=== PATIENT | male | born 1945 | race Caucasian/White ===

== ENCOUNTER → 2022-03-10 | Outpatient (CLI) | payer MEDICARE, OTHER, SELFPAY ==
[2022-03-12 15:08] LABS: Immunoglobulin A 191 mg/dL (61-437); Immunoglobulin G 2081 mg/dL (603-1613)
[2022-03-12 20:30] LABS: Immunoglobulin M 133 mg/dL (15-143)
== END | disposition home or self-care (01) ==
LOC: LABSPEC 13:38
PROVIDERS: Referring Provider Internal Medicine Nephrology; Visit Provider Internal Medicine Nephrology
DX: D50.9 Iron deficiency anemia, unspecified (principal); D63.1 Anemia in chronic kidney disease
CPT/HCPCS: 82784; 86334

== ENCOUNTER 2022-04-08 10:28 | Outpatient (CLI) | payer MEDICARE, OTHER, SELFPAY ==
--- NOTE | 2022-04-08 10:31 | RAD_ITS ---
STUDY: XR Chest 2 Views 04/08/2022 10:39 AM REASON FOR EXAM: Male, 77 years old. CHEST PAIN ?CHF; chronic cough paroxysms COMPARISON: Prior comparison studies are not available for review at this time. TECHNIQUE: XR Chest 2 Views FINDINGS: There is no demonstrated pleural abnormality. There are multiple median sternotomy wires. Left sided pneumonia. Normal heart size. Normal mediastinum. Normal ovidio. Prominent appearing increased interstitial lung markings. Normal visualized pulmonary arteries. There is atherosclerotic calcification of the aortic arch with tortuosity. There are diffuse degenerative changes of the visualized thoracic spine. There is degenerative osteoarthritis of the bilateral shoulders. There is no demonstrated abnormality of the visualized soft tissue structures of the upper abdomen. RAD/Chest PA and Lateral IMPRESSION: Left sided pneumonia. Electronically Signed: Nahid Saucedo MD at 19:12 EST ,
[2022-04-08 11:08] LABS: Hematocrit 25.4 % (40-54); Hemoglobin 7.4 g/dL (13.0-16.5); Mean Corp Hgb Conc 29.1 g/dL (32-36); Mean Corpuscular Hgb 30.2 pg (27.0-32.0); Mean Corpuscular Volume 103.7 fL (80-94); Mean Platelet Vol. 11.5 fl (6.2-12.0); POSITIVE COUNT YES; POSITIVE DIFFERENTIAL YES; POSITIVE MORPHOLOGY YES; Platelet Count 184 K/mm3 (150-450); RBC Distribution Width CV 17.2 % (11.6-14.6); RBC Distribution Width SD 63.9 fl (35.1-43.9); Red Blood Count 2.45 M/mm3 (4.6-6.2)
[2022-04-08 11:20] LABS: Differential Indicated MANUAL DIFF
[2022-04-08 11:52] LABS: BNP,B-Type NATRIURETIC PEPTIDE 21.6 pg/mL (0-100)
[2022-04-08 12:29] LABS: White Blood Count 18.1 K/mm3 (4.4-11.0)
[2022-04-08 12:35] LABS: Neutrophil-Band 10 % (0-5); Neutrophil-Segmented 65 % (47-70); Total Cells Counted 100 (MANUAL DIFF)
[2022-04-08 12:36] LABS: Blast 3 % (0-0); Lymphocyte 20 % (19-41); Metamyelocyte 2 % (0-1); Nucleated Red Bld Cells,Manual 2 % (0-5); Red Cell Morphology NORM C+C NORMAL (NORM C&C)
[2022-04-08 12:37] LABS: Absolute Lymphocyte Count 3.62 X10^3/uL (0.83-4.51); Absolute Neutrophil Count 13.6 X10^3/uL (2.0-7.7)
[2022-04-09 09:51] LABS: Pathologist Review Reviewed
== END 2022-04-08 23:59 | disposition home or self-care (01) ==
PROVIDERS: Visit Provider Internal Medicine
DX: R05.9 Cough, unspecified (principal); Z99.2 Dependence on renal dialysis; N18.6 End stage renal disease; D63.8 Anemia in other chronic diseases classified elsewhere; R06.02 Shortness of breath
CPT/HCPCS: 36415; 71046; 83880; 85025

== ENCOUNTER 2022-04-08 16:16 | Inpatient (IN) | payer MEDICARE, OTHER, SELFPAY ==
[2022-04-08] VITALS (8 sets, daily range): BP systolic 119–132; BP diastolic 53–68; PULSE 97–103; RESP 18–25; TEMP 36.2–37.3; O2SAT 94–99; BMI 23.6; BMI 21.9
--- NOTE | 2022-04-08 18:46 | ED.VIS.DYS ---
HPI History of Present Illness Chief Complaint: Shortness of Breath Narrative Narrative: Patient presents with cough congestion and some dyspnea for the past few days. He is found to be febrile at the pulmonology office, was found to have a pneumonia and sent to the emergency department. Cough is nonproductive. Patient does have peritoneal dialysis however his dialysate fluid is clear and he has no abdominal pain. Patient has no chest pain. There is no back pain. No pleuritic component. [facility] Medical History Abnormal magnetic resonance imaging of lumbar spine Anemia due to chronic illness Benign prostatic hyperplasia Bilateral hip pain BMI 24.0-24.9, adult CAD (coronary artery disease) Cardiovascular risk factor Carotid artery plaque Cataract Constipation Cough Depression screening Dialysis patient Dyspnea on exertion Erectile dysfunction ESRD (end stage renal disease) on dialysis Heart disease High blood pressure High cholesterol Hyperglycemia Hyperlipidemia LDL goal <100 Hypertension, benign Hypogonadism in male Hypothyroidism Insomnia Kidney disease Kidney failure Low HDL (under 40) Neuropathy Obstructive sleep apnea on CPAP Osteoarthritis of lumbar spine Overactive bladder Secondary hyperparathyroidism Thyroid disease Transient amnesia Vitamin D deficiency Home Medications aspirin 81 mg tablet,delayed release (Adult Low Dose Aspirin) 81 mg PO DAILY 02/19/15 [History Last Taken Unknown] cholecalciferol (vitamin D3) 25 mcg (1,000 unit) tablet (Vitamin D3) 2,000 unit PO DAILY 08/18/21 [History Last Taken Unknown] levothyroxine 125 mcg tablet (Euthyrox) 125 mcg PO 08/18/21 [History Last Taken Unknown] pravastatin 40 mg tablet 40 mg PO 08/18/21 [History Last Taken Unknown] acetaminophen 325 mg tablet (Tylenol) 650 mg PO ONCE PRN 04/07/22 [History Last Taken Unknown] calcitriol 0.5 mcg capsule 0.5 mcg PO 04/07/22 [History Last Taken Unknown] polyethylene glycol 3350 17 gram/dose oral powder (Miralax) 4 g PO DAILY PRN 04/07/22 [History Last Taken Unknown] vitamin B complex and vitamin C no.20-folic acid 1 mg capsule ([place] Caps) 1 cap PO DAILY 04/07/22 [History Last Taken Unknown] vitamin B complex and vitamin C no.20-folic acid 1 mg capsule (Triphrocaps) 1 cap PO DAILY 04/07/22 [History Last Taken Unknown] ipratropium bromide 21 mcg (0.03 %) nasal spray 2 spray intranasal TID post nasal drip #30 mL 04/08/22 [Rx Last Taken Unknown] omeprazole magnesium 20 mg tablet,delayed release (Prilosec OTC) 20 mg PO BID #60 tabs 04/08/22 [Rx Last Taken Unknown] Allergy/AdvReac Type Severity Reaction Status Date / Time No Known Allergies Allergy Verified 04/08/22 16:17 Family History Father Diabetes Heart disease Mother Hypertension Brother COVID-19 Brother Colon cancer Sister Lung cancer Other Kidney disease Parkinson disease Thyroid disorder Surgical History H/O heart bypass surgery History of prostate surgery Hx of cataract surgery S/P CABG (coronary artery bypass graft) Social History number of children: 3 Smoking Status: Never smoker alcohol intake: current alcohol intake frequency: 0-2 drinks per day substance use type: does not use diet: other well-balanced diet: daily or most days caffeine: Yes what type of physical activity do you participate in: none ROS ROS ED ROS Narrative Past medical history: Reviewed Medications: Reviewed Social history: Noncontributory Review of systems: All systems negative except as indicated General: Fever as in HPI Eyes: No visual changes ENT: No upper airway congestion, normal voice Neck: No neck pain Cardiovascular: No chest pain Respiratory: Dyspnea as in HPI Gastrointestinal: No abdominal pain, nausea vomiting or diarrhea Genitourinary: No dysuria Musculoskeletal: Denies myalgias no difficulty with ambulation Skin: No rash Neurological: No memory loss, confusion or any focal weakness Psych: No recent behavioral changes Hematologic: No easy bleeding or easy bruising EXAM Physical Exam Narrative Exam Narrative: Physical exam General: He appears relatively comfortable in the ED. Head: Normocephalic, Atraumatic Eyes: Conjunctiva not pale ENT: Moist mucous membranes, no signs of dehydration Neck: Supple, Nontender, No lymphadenopathy Cardiovascular: Regular rate, Regular rhythm Respiratory: Some coarse bilateral breath sounds. Abdomen: Soft, Nontender, Nondistended Back: Nontender, Normal Inspection. Negative for: CVA tenderness Extremities: Nontender, No edema Skin: Normal color, No rash Neurological: Alert, Normal Strength, Normal Sensation Psychological: Normal affect Const Vital Signs: 04/08/22 16:17 04/08/22 18:29 04/08/22 18:30 Temperature 97.2 F L Temperature Source Temporal Pulse Rate 103 H 101 H Respiratory Rate 18 25 H Respiratory Effort Respiratory Depth Respiratory Pattern Blood Pressure 126/53 H 125/58 H Blood Pressure Mean 77 80 Pulse Ox 99 97 97 Oxygen Delivery Method Room Air Room Air Room Air 04/08/22 18:30 04/08/22 18:31 04/08/22 19:00 Temperature 98 F 97.8 F Temperature Source Temporal Temporal Pulse Rate 101 H 102 H Respiratory Rate 20 H 20 H Respiratory Effort Normal Non-Labored Respiratory Depth Normal Respiratory Pattern Normal Blood Pressure 123/62 H 132/54 H Blood Pressure Mean 82 80 Pulse Ox 97 96 Oxygen Delivery Method Room Air Room Air Room Air MDM MDM Lab Data Labs: Laboratory Results - last 24 hr 04/08/22 04/08/22 04/08/22 18:36 18:40 18:40 WBC 12.6 H RBC 2.23 L Hgb 6.6 L Hct 23.3 L MCV 104.5 H MCH 29.6 MCHC 28.3 L RDW Std Deviation 64.7 H RDW Coeff of Marilou 17.2 H Plt Count 130 L MPV 12.0 Neut % (Auto) Not Reportable Absolute Neuts (auto) 8.4 H Absolute Lymphs (auto) 1.89 Total Counted 100 Neutrophils % (Manual) 66 Band Neutrophils % 1 Lymphocytes % (Manual) 15 L Monocytes % (Manual) 7 Metamyelocytes % 7 H Promyelocytes % 4 H Diff Path Review May foll PT 16.3 H INR 1.3 APTT 34.8 Sodium Potassium Chloride Carbon Dioxide Anion Gap BUN Creatinine Estim Creat Clear Calc Est GFR (MDRD) Af Amer Est GFR (MDRD) Non-Af BUN/Creatinine Ratio Glucose Lactic Acid Calcium Total Bilirubin AST ALT Alkaline Phosphatase Total Protein Albumin Globulin Albumin/Globulin Ratio Urine Color Yellow Urine Clarity Sl. Cloudy Urine pH 5.0 Ur Specific [place] 1.015 Urine Protein 30 H Urine Glucose (UA) Normal Urine Ketones Negative Urine Occult Blood 25 H Urine Nitrite Negative Urine Bilirubin Negative Urine Urobilinogen Normal Ur Leukocyte Esterase Negative Urine RBC 0-5 SEEN Urine WBC 0 SEEN Ur Squamous Epith Cells 0-5 SEEN Urine Bacteria RARE Urine Mucus 0 SEEN 04/08/22 04/08/22 18:40 18:40 WBC RBC Hgb Hct MCV MCH MCHC RDW Std Deviation RDW Coeff of Marilou Plt Count MPV Neut % (Auto) Absolute Neuts (auto) Absolute Lymphs (auto) Total Counted Neutrophils % (Manual) Band Neutrophils % Lymphocytes % (Manual) Monocytes % (Manual) Metamyelocytes % Promyelocytes % Diff Path Review PT INR APTT Sodium 137 Potassium 3.5 Chloride 104 Carbon Dioxide 20.0 L Anion Gap 13 BUN 97 H Creatinine 5.76 H Estim Creat Clear Calc 9.72 Est GFR (MDRD) Af Amer 12 L Est GFR (MDRD) Non-Af 10 L BUN/Creatinine Ratio 16.8 Glucose 140 H Lactic Acid 1.0 Calcium 9.2 Total Bilirubin 0.30 AST 17 ALT 22 Alkaline Phosphatase 33 L Total Protein 7.7 Albumin 2.8 L Globulin 4.9 H Albumin/Globulin Ratio 0.6 L Urine Color Urine Clarity Urine pH Ur Specific [place] Urine Protein Urine Glucose (UA) Urine Ketones Urine Occult Blood Urine Nitrite Urine Bilirubin Urine Urobilinogen Ur Leukocyte Esterase Urine RBC Urine WBC Ur Squamous Epith Cells Urine Bacteria Urine Mucus Radiography Diagnostic Testing: Clinical Impression(s) from Imaging Studies Chest X-Ray 04/08/22 18:47 IMPRESSION: Left sided pneumonia. Electronically Signed: Nahid Saucedo MD at 19:12 EST Reading Location ID and State: [facility] / [place] , Service support , X-ray interpreted by me shows left-sided pneumonia. EKG Initial EKG: Comments: 6 sinus rhythm with a rate of 99. Normal MA interval. QTc slightly elevated 492. No acute ischemic changes. Interpreted by emergency doctor Treatment and Re-Evaluation Narrative: A. Problems addressed Patient has peritoneal dialysis, his creatinine is elevated but his electrolytes are grossly unremarkable. He does not need acute dialysis. He is found to have pneumonia, I he is quite weak he is not desaturating. 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 This seems reasonable especially that he has chronic anemia chronic dialysis and has impaired healing function. B. Amount and/or complexity of the data 1. I discussed the patient with and daughter in the room Blood work interpreted by me 2. Independent interpretation of test Telemetry: Sinus rhythm with a rate in the 90s without ectopy 3. I discussed with pulmonology and medicine for admission C. Risk of complications and/or morbidity Differential diagnosis:, Patient does not have any signs or symptoms of ACS, pneumothorax was not found on the x-ray. I thought about PE however patient has obvious pneumonia which we will treat. Discharge Plan Triage Chief Complaint: Shortness of Breath ED Provider: Leighton Angulo Dx/Rx/DC Orders Clinical Impression: End stage chronic kidney disease, Anemia in chronic illness, Pneumonia Prescriptions: No Action levothyroxine [Euthyrox] 125 mcg tablet 125 mcg PO pravastatin 40 mg tablet 40 mg PO calcitriol 0.5 mcg capsule 0.5 mcg PO Rx Instructions: 3 DAYS A WEEK polyethylene glycol 3350 [Miralax] 17 gram/dose powder 4 g PO DAILY PRN [place] Caps 1 mg capsule 1 cap PO DAILY Rx Instructions: 3 DAYS A WEEK acetaminophen [Tylenol] 325 mg tablet 650 mg PO ONCE PRN Triphrocaps 1 mg capsule 1 cap PO DAILY ipratropium bromide 21 mcg (0.03 %) spray,non-aerosol 2 spray intranasal TID MDD 6 sprays Qty: 30 0RF Rx Instructions: administer into each nostril omeprazole magnesium [Prilosec OTC] 20 mg tablet,delayed release (DR/EC) 20 mg PO BID Qty: 60 2RF aspirin [Adult Low Dose Aspirin] 81 MG tablet,delayed release (DR/EC) 81 mg PO DAILY cholecalciferol (vitamin D3) [Vitamin D3] 25 mcg (1,000 unit) tablet 2,000 unit PO DAILY Primary Care Provider: Ulises Cm Referrals: Ulises Cm MD [Primary Care Provider] - Disposition Disposition: Acute Care Hospital [facility]
--- NOTE | 2022-04-08 18:47 | RAD_ITS ---
STUDY: XR Chest 1 View 04/08/2022 6:48 PM REASON FOR EXAM: Male, 77 years old. CHEST PAIN sob COMPARISON: Study done earlier today. TECHNIQUE: XR Chest 1 View FINDINGS: There is no demonstrated pleural abnormality. There are multiple median sternotomy wires. Left sided pneumonia. Normal heart size. Normal mediastinum. Normal ovidio. Prominent appearing increased interstitial lung markings. Normal visualized pulmonary arteries. There is atherosclerotic calcification of the aortic arch with tortuosity. There are diffuse degenerative changes of the visualized thoracic spine. There is degenerative osteoarthritis of the bilateral shoulders. There is no demonstrated abnormality of the visualized soft tissue structures of the upper abdomen. RAD/Chest 1 View (Portable) IMPRESSION: Left sided pneumonia. Electronically Signed: Nahid Saucedo MD at 19:12 EST ,
[2022-04-08 18:57] LABS: Mucous, Urine 0 SEEN /hpf (<or=2+); White Blood Cells 0 SEEN /hpf (0-5)
[2022-04-08 18:59] LABS: Color, Urine Yellow (Yellow); Glucose, Dipstick Normal (Normal); Ketone-Dipstick Negative (Negative); Leukocyte Esterase-Dipstick Negative /ul (Negative); Nitrite-Dipstick Negative (Negative); Occult Blood-Urine 25 /ul (Negative); Protein-Dipstick 30 mg/dl (Negative); Specific Gravity, Urine 1.015 (1.002-1.030); Urine Bilirubin Dipstick Negative (Negative); Urine Clarity Sl. Cloudy (Clear); Urine Urobilinogen Normal (Normal)
[2022-04-08 19:00] LABS: Hematocrit 23.3 % (40-54); Hemoglobin 6.6 g/dL (13.0-16.5); Mean Corp Hgb Conc 28.3 g/dL (32-36); Mean Corpuscular Hgb 29.6 pg (27.0-32.0); Mean Corpuscular Volume 104.5 fL (80-94); POSITIVE COUNT YES; POSITIVE MORPHOLOGY YES; Platelet Count 130 K/mm3 (150-450); RBC Distribution Width CV 17.2 % (11.6-14.6); RBC Distribution Width SD 64.7 fl (35.1-43.9); Red Blood Count 2.23 M/mm3 (4.6-6.2); White Blood Count 12.6 K/mm3 (4.4-11.0)
[2022-04-08 19:03] LABS: Differential Indicated MANUAL DIFF
[2022-04-08] MEDS: Ceftriaxone 1 GM/50 ML BAG IV (19:06)
[2022-04-08 19:09] LABS: International Normalized Ratio 1.3; Prothrombin Time (Protime)PT. 16.3 SECONDS (11.7-14.9)
[2022-04-08 19:10] LABS: Partial Thromboplast Time 34.8 Seconds (24.1-36.2)
[2022-04-08 19:14] LABS: Bacteria RARE /hpf (None Seen); Red Blood Cells-Urine 0-5 SEEN /hpf (0-5); Squamous Epithelial Cells - UA 0-5 SEEN /hpf (0-5)
[2022-04-08 19:17] LABS: ALB/GLOB Ratio 0.6 RATIO (0.9-2.4); AST(SGOT) 17 U/L (15-37); Alanine Aminotransfer ALT/SGPT 22 U/L (16-61); Albumin, Serum 2.8 g/dL (3.2-5.0); Alkaline Phosphatase 33 U/L (45-117); Anion Gap 13 (5-15); BUN 97 mg/dL (7-18); BUN/Creat Ratio 16.8 RATIO (10-20); Calcium,Total 9.2 mg/dL (8.5-10.1); Chloride 104 mmol/L (98-107); Creatinine, Serum 5.76 mg/dL (0.70-1.30); EST Glomerular Filtration Rate 10 mL/min (>60); Est Glom Filt Rate - Afr Amer 12 mL/min (>60); Estimated Creatinine Clearance 9.72 ml/min; Globulin 4.9 g/dL (2.2-4.2); Glucose 140 mg/dL (74-106); Potassium 3.5 mmol/L (3.5-5.1); Protein, Total 7.7 g/dL (6.4-8.2); Sodium Level 137 mmol/L (136-145)
[2022-04-08 19:41] LABS: Lymphocyte 15 % (19-41); Metamyelocyte 7 % (0-1); Monocyte 7 % (0-10); Neutrophil-Band 1 % (0-5); Neutrophil-Segmented 66 % (47-70); Promyelocyte 4 % (0-0); Total Cells Counted 100 (MANUAL DIFF)
[2022-04-08 19:47] LABS: Absolute Lymphocyte Count 1.89 X10^3/uL (0.83-4.51); Absolute Neutrophil Count 8.4 X10^3/uL (2.0-7.7)
--- NOTE | 2022-04-08 21:24 | HP.PCM.HOS_ITS ---
HPI - General General Date of Admission: 04/08/22 Date of Service: 04/08/22 Chief Complaint: SOB HPI Narrative JONATHAN FISCHER, is a 77-year-old male with history of end-stage renal disease sleep apnea, anemia of chronic disease who presented to [facility] 04/08 with increasing shortness of breath over several days. He was se en in the outpatient pulmonary office today and was noted to be febrile and found to have pneumonia and sent to the emergency department, the time he also had leukocytosis with a. Chronically on peritoneal dialysis but no overt electrolyte abnormalities in the ED. He was not hypoxic in the ED however given his multiple medical comorbidities inpatient versus outpatient treatment was discussed in the ED and he opted for inpatient treatment. In ED patient reported he has been coughing for months and short of breath for several weeks over the past 3 days he has had increased shortness of breath and cough with intermittent small production of sputum, denies any fevers, reports he has multiple medical problems that have been slowly adding up including hemoglobin in the 6-7 range for which she had a transfusion on 03/31 but has trended back down though no bleeding noted. He is recently established with director it project and is awaiting his bone marrow biopsy results. [facility] Medical History Abnormal magnetic resonance imaging of lumbar spine Anemia due to chronic illness Benign prostatic hyperplasia Bilateral hip pain BMI 24.0-24.9, adult CAD (coronary artery disease) Cardiovascular risk factor Carotid artery plaque Cataract Constipation Cough Depression screening Dialysis patient Dyspnea on exertion Erectile dysfunction ESRD (end stage renal disease) on dialysis Heart disease High blood pressure High cholesterol Hyperglycemia Hyperlipidemia LDL goal <100 Hypertension, benign Hypogonadism in male Hypothyroidism Insomnia Kidney disease Kidney failure Low HDL (under 40) Neuropathy Obstructive sleep apnea on CPAP Osteoarthritis of lumbar spine Overactive bladder Secondary hyperparathyroidism Thyroid disease Transient amnesia Vitamin D deficiency Home Medications aspirin 81 mg tablet,delayed release (Adult Low Dose Aspirin) 81 mg PO DAILY 02/19/15 [History Last Taken Unknown] cholecalciferol (vitamin D3) 25 mcg (1,000 unit) tablet (Vitamin D3) 2,000 unit PO DAILY 08/18/21 [History Last Taken Unknown] levothyroxine 125 mcg tablet (Euthyrox) 125 mcg PO DAILY 08/18/21 [History Last Taken Unknown] pravastatin 40 mg tablet 40 mg PO DAILY 08/18/21 [History Last Taken Unknown] calcitriol 0.5 mcg capsule 0.5 mcg PO 04/07/22 [History Last Taken Unknown] vitamin B complex and vitamin C no.20-folic acid 1 mg capsule ([place] Caps) 1 cap PO DAILY 04/07/22 [History Last Taken Unknown] ipratropium bromide 21 mcg (0.03 %) nasal spray 2 spray intranasal TID post nasal drip #30 mL 04/08/22 [Rx Last Taken Unknown] omeprazole magnesium 20 mg tablet,delayed release (Prilosec OTC) 20 mg PO BID #60 tabs 04/08/22 [Rx Last Taken Unknown] Allergy/AdvReac Type Severity Reaction Status Date / Time No Known Allergies Allergy Verified 04/08/22 16:17 Family History Father Diabetes Heart disease Mother Hypertension Brother COVID-19 Brother Colon cancer Sister Lung cancer Other Kidney disease Parkinson disease Thyroid disorder Surgical History H/O heart bypass surgery History of prostate surgery Hx of cataract surgery S/P CABG (coronary artery bypass graft) Social History number of children: 3 Smoking Status: Never smoker alcohol intake: current alcohol intake frequency: 0-2 drinks per day substance use type: does not use diet: other well-balanced diet: daily or most days caffeine: Yes what type of physical activity do you participate in: none ROS ROS Narrative General: Denies fever or chills, has had some gradual weight loss, some general malaise HENT: Denies headache, denies stuffy nose, denies sore throat EYES: Denies changes in vision Resp: Has had cough over several months as well as shortness of breath over 3 weeks that is worsened over the past several days Cardiac: Denies chest pain GI: Denies abdominal pain, denies changes in bowel, denies nausea, denies vomiting : Denies changes in urination Extremity: Denies swelling MSK: Denies weakness Neuro: Denies any numbness, denies tingling Heme: Denies any bleeding or bruising Skin: Denies rashes Psychiatric: No complaints voiced this Vital Signs Vital Signs Vital Signs: 04/08/22 16:17 04/08/22 18:29 04/08/22 18:30 Temperature 97.2 F L Temperature Source Temporal Pulse Rate 103 H 101 H Respiratory Rate 18 25 H Respiratory Effort Respiratory Depth Respiratory Pattern Blood Pressure 126/53 H 125/58 H Blood Pressure Mean 77 80 Pulse Ox 99 97 97 Oxygen Delivery Method Room Air Room Air Room Air 04/08/22 18:30 04/08/22 18:31 04/08/22 19:00 Temperature 98 F 97.8 F Temperature Source Temporal Temporal Pulse Rate 101 H 102 H Respiratory Rate 20 H 20 H Respiratory Effort Normal Non-Labored Respiratory Depth Normal Respiratory Pattern Normal Blood Pressure 123/62 H 132/54 H Blood Pressure Mean 82 80 Pulse Ox 97 96 Oxygen Delivery Method Room Air Room Air Room Air 04/08/22 20:33 Temperature 98.7 F Temperature Source Temporal Pulse Rate 100 Respiratory Rate 19 H Respiratory Effort Respiratory Depth Respiratory Pattern Blood Pressure 123/58 H Blood Pressure Mean 79 Pulse Ox 96 Oxygen Delivery Method Room Air Weight Weight: 68.3 kg Body Mass Index (BMI) 23.6 Physical Exam Narrative General: Alert, oriented, no apparent distress HEENT: Atraumatic, normocephalic Eyes: Anicteric, normal conjunctiva, extraocular movements grossly intact Neck: Supple Respiratory: Normal respiratory effort, some crackles on the left lower side Cardiovascular: Regular rate and rhythm GI: Soft, nontender, nondistended Extremities: No edema Musculoskeletal: Moving all extremities Neuro: No overt focal neurological deficits Skin: No rashes appreciated Psych: Cooperative Results Lab / Micro Data Result Diagrams: 04/08/22 18:40 04/08/22 18:40 Labs: Laboratory Results - last 24 hr 04/08/22 18:36: Urine Color Yellow, Urine Clarity Sl. Cloudy, Urine pH 5.0, Ur Specific [place] 1.015, Urine Protein 30 H, Urine Glucose (UA) Normal, Urine Ketones Negative, Urine Occult Blood 25 H, Urine Nitrite Negative, Urine Bilirubin Negative, Urine Urobilinogen Normal, Ur Leukocyte Esterase Negative, Urine RBC 0-5 SEEN, Urine WBC 0 SEEN, Ur Squamous Epith Cells 0-5 SEEN, Urine Bacteria RARE, Urine Mucus 0 SEEN 04/08/22 18:40: WBC 12.6 H, RBC 2.23 L, Hgb 6.6 L, Hct 23.3 L, MCV 104.5 H, MCH 29.6, MCHC 28.3 L, RDW Std Deviation 64.7 H, RDW Coeff of Marilou 17.2 H, Plt Count 130 L, MPV 12.0, Neut % (Auto) Not Reportable, Absolute Neuts (auto) 8.4 H, Absolute Lymphs (auto) 1.89, Total Counted 100, Neutrophils % (Manual) 66, Band Neutrophils % 1, Lymphocytes % (Manual) 15 L, Monocytes % (Manual) 7, Metamyelocytes % 7 H, Promyelocytes % 4 H, Diff Path Review June04/08/22 18:40: PT 16.3 H, INR 1.3, APTT 34.8 04/08/22 18:40: Sodium 137, Potassium 3.5, Chloride 104, Carbon Dioxide 20.0 L, Anion Gap 13, BUN 97 H, Creatinine 5.76 H, Estim Creat Clear Calc 9.72, Est GFR (MDRD) Af Amer 12 L, Est GFR (MDRD) Non-Af 10 L, BUN/Creatinine Ratio 16.8, Glucose 140 H, Calcium 9.2, Total Bilirubin 0.30, AST 17, ALT 22, Alkaline Phosphatase 33 L, Total Protein 7.7, Albumin 2.8 L, Globulin 4.9 H, Albumin/Globulin Ratio 0.6 L 04/08/22 18:40: Lactic Acid 1.0 04/08/22 20:47: Crossmatch See Detail Micro: Microbiology 04/08/22 18:50 Nasal Secretion SARS-CoV-2 & FLU Antigen (Rapid) - Final Radiology Impression Chest X-Ray 04/08/22 18:47 IMPRESSION: Left sided pneumonia. Electronically Signed: Nahid Saucedo MD at 19:12 EST Reading Location ID and State: [facility] / [place] , Service support , Assessment & Plan Assessment/Plan (1) End stage chronic kidney disease: (2) Anemia in chronic illness: (3) Pneumonia: (4) Obstructive sleep apnea on CPAP: PLAN: Plan #Community-acquired pneumonia -Chest x-ray consistent with left-sided pneumonia -COVID and flu negative -Blood cultures were sent in the ED -Sputum culture, respiratory panel -Rocephin and azithromycin -Incentive spirometry -Urine antigens #Anemia of chronic disease -Hemoglobin earlier today 7.4, reportedly was received fluids and presently is 6.6 -No signs or symptoms of bleeding, was typed and crossed in ED and packed red blood cells ordered however spoke with the lab and his blood has to be sent to the [place] for more specific testing due to multiple antibodies, given no active bleeding will monitor CBC and await crossmatch -Per patient he had to have a transfusion on March 31 for low hemoglobin as well, recently established with a director it project -Given this is a chronic problem and is being worked up as an outpatient including bone marrow biopsy that is pending will not repeat work-up unless further drop or evidence of bleeding -Given his coronary artery disease and anemia being chronic with no noted bleeding we will continue his home aspirin with low threshold to discontinue #Coronary artery disease status post bypass x2 in 2019 -Continue aspirin, statin #Obstructive sleep apnea -Uses CPAP at home, has brought it with him, will place order #End-stage renal disease on peritoneal dialysis -Does home peritoneal dialysis 3 times a week -Monitor electrolytes -Nephrology -Daily weights, I's and O's #Hypothyroidism -Synthroid #DVT ppx: SCDs given hemoglobin Glo Christopher MD Time spent in the patient's overall evaluation,decision-making process, review of diagnostic data, adjustment of management, discussion with other providers, nursing nursing and ancillary staff involved in patient's care documentation, 60 minutes Charges/Coding Visit Charges Inpatient E&M: 04319 Init Hosp L2
[2022-04-08] MEDS: guaiFENesin 1,200 MG Tablet 1200 MG PO (23:49)
[2022-04-08] MEDS: Pravastatin 40 MG Tablet PO (23:49)
[2022-04-08] MEDS: Pantoprazole Sodium 20 MG Tablet PO (23:49)
[2022-04-09] VITALS (7 sets, daily range): BP systolic 113–131; BP diastolic 64–68; PULSE 89–106; RESP 18–20; TEMP 36.6–37.6; O2SAT 95–100
[2022-04-09 04:41] LABS: Hematocrit 22.4 % (40-54); Hemoglobin 6.4 g/dL (13.0-16.5); Mean Corp Hgb Conc 28.6 g/dL (32-36); Mean Corpuscular Hgb 29.6 pg (27.0-32.0); Mean Corpuscular Volume 103.7 fL (80-94); Mean Platelet Vol. 11.3 fl (6.2-12.0); POSITIVE COUNT YES; POSITIVE MORPHOLOGY YES; Platelet Count 148 K/mm3 (150-450); RBC Distribution Width CV 17.1 % (11.6-14.6); RBC Distribution Width SD 62.8 fl (35.1-43.9); Red Blood Count 2.16 M/mm3 (4.6-6.2); White Blood Count 12.5 K/mm3 (4.4-11.0)
[2022-04-09 04:42] LABS: Differential Indicated MANUAL DIFF
[2022-04-09 05:09] LABS: ALB/GLOB Ratio 0.6 RATIO (0.9-2.4); AST(SGOT) 21 U/L (15-37); Alanine Aminotransfer ALT/SGPT 21 U/L (16-61); Albumin, Serum 2.6 g/dL (3.2-5.0); Alkaline Phosphatase 32 U/L (45-117); Anion Gap 13 (5-15); BUN 95 mg/dL (7-18); BUN/Creat Ratio 16.7 RATIO (10-20); Calcium,Total 9.1 mg/dL (8.5-10.1); Chloride 106 mmol/L (98-107); EST Glomerular Filtration Rate 10 mL/min (>60); Est Glom Filt Rate - Afr Amer 12 mL/min (>60); Estimated Creatinine Clearance 9.84 ml/min; Globulin 4.6 g/dL (2.2-4.2); Glucose 107 mg/dL (74-106); Potassium 3.7 mmol/L (3.5-5.1); Protein, Total 7.2 g/dL (6.4-8.2); Sodium Level 138 mmol/L (136-145); Total Cells Counted 100 (MANUAL DIFF)
[2022-04-09 05:10] LABS: Blast 1 % (0-0); Lymphocyte 14 % (19-41); Metamyelocyte 4 % (0-1); Monocyte 4 % (0-10); Myelocyte 9 % (0-0); Neutrophil-Band 1 % (0-5); Neutrophil-Segmented 66 % (47-70); Promyelocyte 1 % (0-0)
[2022-04-09 05:11] LABS: Anisocytosis 1+; Hypochromasia 1+; Macrocytosis RARE; Microcytosis RARE; Platelet Estimate ADEQUATE (ADEQ); Stomatocyte RARE
[2022-04-09 05:12] LABS: Absolute Lymphocyte Count 1.74 X10^3/uL (0.83-4.51); Absolute Neutrophil Count 8.3 X10^3/uL (2.0-7.7); Lymphocyte # 1.74 X10^3/ul (0.83-4.51); Neutrophil # 8.34 X10^3/uL (2.7-7.7)
[2022-04-09] MEDS: Levothyroxine 125 MCG Tablet PO (05:27)
[2022-04-09] MEDS: Ipratropium Bromide 0.06% NASAL SPRAY 1 SPRAY NASAL ×3 (05:27→21:11)
--- NOTE | 2022-04-09 08:04 | PCM.PN.HOSP ---
Reason for Visit Reason for Visit: Follow-up for severe anemia and pneumonia along with multiple comorbidities including ESKD on peritoneal dialysis and coronary artery disease status post CABG Diagnoses Anemia in other chronic diseases classified elsewhere (04/08/22) Obstructive sleep apnea (adult) (pediatric) (04/08/22) Pneumonia, unspecified organism (04/08/22) End stage renal disease (04/08/22) Dependence on other enabling machines and devices (04/08/22) Objective Data Objective Data Seen and examined. Patient is elderly gentleman. Shortness of breath is better. Patient was febrile and leukocytosis in ED. Cough with small sputum production. Physical exam General: Alert, Oriented x3, Cooperative HEENT: Atraumatic, PERRLA, EOMI, Normocephalic Oral: Oral mucosa dry. No Gingival or Mucosal Lesions/ Ulcerations Neck: Supple, No JVD, Negative Carotid Bruits Lungs: Air entry diminished in bilateral lung bases. No crepitation rhonchi or wheezing. Cardiovascular: Sinus rhythm, CABG scar. Regular rate, Regular Rhythm, Normal S1, Normal S2, systolic murmur over LLSB and cardiac apex. Abdomen: Bowel Sounds Present, Soft, Non Tender, Non-Distended : Peritoneal catheter present. No renal angle tenderness. No suprapubic tenderness. Extremities: No edema, Capillary Refill Less than 3 Seconds Skin: No rashes, No breakdown Musculoskeletal: No Tenderness to Palpation of Joints or Extremities. Moderate atrophy of muscles of extremities. Neurological: Cranial nerves II-XII grossly intact, DTR 2+/4 and Symmetrical, Neuro grossly intact Psych/Mental Status: Flat affect. Vital Signs: Vital Signs Temp Pulse Resp BP Pulse Ox O2 Del Method 97.9 F 98 18 113/68 100 Room Air 04/09/22 04:14 04/09/22 04:14 04/09/22 04:14 04/09/22 04:14 04/09/22 07:37 04/09/22 07:37 Oxygen Delivery Method Room Air Weight: 145 lb 15.136 oz Body Mass Index (BMI) 21.9 Intake & Output: Intake and Output for Last 24 Hours 04/07/22 04/08/22 04/09/22 23:59 23:59 23:59 Intake Total 305 / 305 900 / 900 Output Total 500 / 500 Balance 305 / 305 400 / 400 Lab / Micro Data Result Diagrams: 04/09/22 04:32 04/09/22 04:32 Labs: Laboratory Results - last 24 hr 04/08/22 18:36: Urine Color Yellow, Urine Clarity Sl. Cloudy, Urine pH 5.0, Ur Specific [place] 1.015, Urine Protein 30 H, Urine Glucose (UA) Normal, Urine Ketones Negative, Urine Occult Blood 25 H, Urine Nitrite Negative, Urine Bilirubin Negative, Urine Urobilinogen Normal, Ur Leukocyte Esterase Negative, Urine RBC 0-5 SEEN, Urine WBC 0 SEEN, Ur Squamous Epith Cells 0-5 SEEN, Urine Bacteria RARE, Urine Mucus 0 SEEN 04/08/22 18:40: WBC 12.6 H, RBC 2.23 L, Hgb 6.6 L, Hct 23.3 L, MCV 104.5 H, MCH 29.6, MCHC 28.3 L, RDW Std Deviation 64.7 H, RDW Coeff of Marilou 17.2 H, Plt Count 130 L, MPV 12.0, Neut % (Auto) Not Reportable, Absolute Neuts (auto) 8.4 H, Absolute Lymphs (auto) 1.89, Total Counted 100, Neutrophils % (Manual) 66, Band Neutrophils % 1, Lymphocytes % (Manual) 15 L, Monocytes % (Manual) 7, Metamyelocytes % 7 H, Promyelocytes % 4 H, Diff Path Review June04/08/22 18:40: PT 16.3 H, INR 1.3, APTT 34.8 04/08/22 18:40: Sodium 137, Potassium 3.5, Chloride 104, Carbon Dioxide 20.0 L, Anion Gap 13, BUN 97 H, Creatinine 5.76 H, Estim Creat Clear Calc 9.72, Est GFR (MDRD) Af Amer 12 L, Est GFR (MDRD) Non-Af 10 L, BUN/Creatinine Ratio 16.8, Glucose 140 H, Calcium 9.2, Total Bilirubin 0.30, AST 17, ALT 22, Alkaline Phosphatase 33 L, Total Protein 7.7, Albumin 2.8 L, Globulin 4.9 H, Albumin/Globulin Ratio 0.6 L 04/08/22 18:40: Lactic Acid 1.0 04/08/22 20:47: Blood Type A NEGATIVE, Antibody Screen POSITIVE H, Crossmatch See Detail 04/08/22 20:47: Direct Antiglob Test NEG w/POLYSPECIFIC 04/09/22 04:32: WBC 12.5 H, RBC 2.16 L, Hgb 6.4 L, Hct 22.4 L, MCV 103.7 H, MCH 29.6, MCHC 28.6 L, RDW Std Deviation 62.8 H, RDW Coeff of Marilou 17.1 H, Plt Count 148 L, MPV 11.3, Neut % (Auto) Not Reportable, Absolute Neuts (auto) 8.3 H, Absolute Lymphs (auto) 1.74, Total Counted 100, Neutrophils % (Manual) 66, Band Neutrophils % 1, Lymphocytes % (Manual) 14 L, Monocytes % (Manual) 4, Metamyelocytes % 4 H, Myelocytes % 9 H, Promyelocytes % 1 H, Blast Cells % 1 H*, Diff Path Review May , Platelet Estimate ADEQUATE, Hypochromasia 1+, Anisocytosis 1+, Microcytosis RARE, Macrocytosis RARE, Stomatocytes RARE 04/09/22 04:32: Sodium 138, Potassium 3.7, Chloride 106, Carbon Dioxide 19.0 L, Anion Gap 13, BUN 95 H, Creatinine 5.70 H, Estim Creat Clear Calc 9.84, Est GFR (MDRD) Af Amer 12 L, Est GFR (MDRD) Non-Af 10 L, BUN/Creatinine Ratio 16.7, Glucose 107 H, Calcium 9.1, Total Bilirubin 0.40, AST 21, ALT 21, Alkaline Phosphatase 32 L, Total Protein 7.2, Albumin 2.6 L, Globulin 4.6 H, Albumin/Globulin Ratio 0.6 L Micro: Microbiology 04/08/22 23:00 Mucosa - Nasopharyngeal Respiratory Panel (PCR) - Final 04/08/22 18:50 Nasal Secretion SARS-CoV-2 & FLU Antigen (Rapid) - Final Radiography Diagnostic Testing: Radiology Impression Chest X-Ray 04/08/22 18:47 IMPRESSION: Left sided pneumonia. Electronically Signed: Nahid Saucedo MD at 19:12 EST , Assessment & Plan Assessment/Plan (1) End stage chronic kidney disease: (2) Anemia in chronic illness: (3) Pneumonia: (4) Obstructive sleep apnea on CPAP: PLAN: Plan This 77-year-old gentleman was admitted for unproductive cough, congestion, dyspnea for past several days. Patient was found febrile in pulmonary office and pneumonia and was sent to ED for admission. No chest pain or back pain. #Community-acquired pneumonia: Chest x-ray image reviewed shows left-sided pneumonia. -COVID and flu negative. Respiratory panel negative. Sputum culture pending.Blood cultures x2 pending. On IV Rocephin and Zithromax. Incentive spirometry Pep and Mucinex DM. #Severe macrocytic anemia on anemia of chronic kidney disease: -Hemoglobin earlier today 7.4, reportedly was received fluids and presently is 6.6. 1 unit of PRBC ordered. No external bleeding or active bleeding. Patient had previous testing on March 31 and had recently established with investigation specialist in [place]. He does not remember the name. Patient had bone marrow biopsy 2 weeks. He has follow-up date for bone marrow biopsy report on next 04/14/2022. #Coronary artery disease status post bypass x2 in 2019 -Continue aspirin, statin #Obstructive sleep apnea -Uses CPAP at home, has brought it with him, will place order #End-stage renal disease on peritoneal dialysis -Does home peritoneal dialysis 3 times a week -Monitor electrolytes. Assistant Professor Of Biochemistry consulted. -Daily weights, I's and O's #Hypothyroidism -Synthroid #DVT ppx: SCDs pharmacological prophylaxis contraindicated. Charges/Coding Visit Charges Inpatient E&M: 21832 [facility] L3
[2022-04-09] MEDS: Cholecalciferol (VIT D3) 25 MCG TABLET (1,000 UNITS) 50 MCG PO (08:15)
[2022-04-09] MEDS: guaiFENesin 1,200 MG Tablet 1200 MG PO ×2 (08:16→21:09)
[2022-04-09] MEDS: Pantoprazole Sodium 20 MG Tablet PO ×2 (08:16→21:09)
[2022-04-09] MEDS: Calcitriol 0.25 MCG Capsule 0.5 MCG PO (08:19)
--- NOTE | 2022-04-09 09:25 | PCM.CONS.R ---
Assessment & Plan Assessment/Plan (1) End stage chronic kidney disease: (2) Pneumonia: (3) Anemia in chronic illness: PLAN: Plan This is a 77-year-old male with past medical history significant for ESRD who is on peritoneal dialysis support 3 nights weekly followed by Dr. Gerardo. Patient last had peritoneal dialysis on Tuesday evening. Per patient report, he undergoes peritoneal dialysis 3 nights weekly on a Tuesday, Tuesday, schedule using all 1.5% dianeal solution. We will plan for peritoneal dialysis this evening using 1.5% solution. We will obtain patient's outpatient chronic PD orders. Patient is on IV antibiotics for pneumonia. Reviewed chest x-ray which showed left-sided pneumonia. Blood cultures drawn and are pending. Patient has been ordered PRBC, hgb today 6.4. Blood pressures acceptable, not on any antihypertensives. We will order protein supplement. Thank you for allowing us participate in the care of Mr. Segura, further orders forthcoming as hospitalization evolves HPI Consult Data Date of Consult: 04/09/22 HPI Narrative HPI Narrative: JONATHAN SEGURA, is a 77 M who presented to the emergency room with complaints of shortness of breath and fatigue. Prior to coming to the emergency room patient was seen in outpatient pulmonary office and had been complaining of shortness of breath, febrile and found to have pneumonia therefore sent to the emergency room for evaluation. ER work-up included lab work which showed a low hemoglobin of 6.6. Patient was admitted for community acquired anemia, anemia of chronic disease. Patient recently established with clearance diver and underwent bone marrow biopsy a few weeks ago. Patient has a history of ESRD and is on peritoneal dialysis support. He is followed by Dr. Gerardo. He is seen at the [facility] kidney center in [place]. Per patient report he was started on peritoneal dialysis December 2020 and has been tolerating peritoneal dialysis 3 nights per week on a Tuesday, Tuesday and schedule. Patient reports his last peritoneal dialysis session was on Tuesday evening. Patient denies any recent abdominal pain, cramping and reports peritoneal fluid has been clear. [facility] Medical History Abnormal magnetic resonance imaging of lumbar spine Anemia due to chronic illness Benign prostatic hyperplasia Bilateral hip pain BMI 24.0-24.9, adult CAD (coronary artery disease) Cardiovascular risk factor Carotid artery plaque Cataract Constipation Cough Depression screening Dialysis patient Dyspnea on exertion Erectile dysfunction ESRD (end stage renal disease) on dialysis Heart disease High blood pressure High cholesterol Hyperglycemia Hyperlipidemia LDL goal <100 Hypertension, benign Hypogonadism in male Hypothyroidism Insomnia Kidney disease Kidney failure Low HDL (under 40) Neuropathy Obstructive sleep apnea on CPAP Osteoarthritis of lumbar spine Overactive bladder Secondary hyperparathyroidism Thyroid disease Transient amnesia Vitamin D deficiency Home Medications aspirin 81 mg tablet,delayed release (Adult Low Dose Aspirin) 81 mg PO DAILY 02/19/15 [History Last Taken Unknown] cholecalciferol (vitamin D3) 25 mcg (1,000 unit) tablet (Vitamin D3) 2,000 unit PO DAILY 08/18/21 [History Last Taken Unknown] levothyroxine 125 mcg tablet (Euthyrox) 125 mcg PO DAILY 08/18/21 [History Last Taken Unknown] pravastatin 40 mg tablet 40 mg PO DAILY 08/18/21 [History Last Taken Unknown] calcitriol 0.5 mcg capsule 0.5 mcg PO 04/07/22 [History Last Taken Unknown] vitamin B complex and vitamin C no.20-folic acid 1 mg capsule ([place] Caps) 1 cap PO DAILY 04/07/22 [History Last Taken Unknown] ipratropium bromide 21 mcg (0.03 %) nasal spray 2 spray intranasal TID post nasal drip #30 mL 04/08/22 [Rx Last Taken Unknown] omeprazole magnesium 20 mg tablet,delayed release (Prilosec OTC) 20 mg PO BID #60 tabs 04/08/22 [Rx Last Taken Unknown] Allergy/AdvReac Type Severity Reaction Status Date / Time No Known Allergies Allergy Verified 04/08/22 16:17 Family History Father Diabetes Heart disease Mother Hypertension Brother COVID-19 Brother Colon cancer Sister Lung cancer Other Kidney disease Parkinson disease Thyroid disorder Surgical History H/O heart bypass surgery History of prostate surgery Hx of cataract surgery S/P CABG (coronary artery bypass graft) Social History number of children: 3 Smoking Status: Never smoker alcohol intake: current alcohol intake frequency: 0-2 drinks per day substance use type: does not use diet: other well-balanced diet: daily or most days caffeine: Yes what type of physical activity do you participate in: none ROS ROS Narrative As per HPI and past medical history Physical Exam Narrative Alert and oriented x3, no apparent distress S1, S2, RRR Lung sounds clear anteriorly, diminished breath sounds left side posteriorly Abdomen soft, nontender. PD catheter intact, dressing clean dry and intact around PD catheter site No edema noted to bilateral lower legs feet or arms Lab / Micro Data Result Diagrams: 04/09/22 04:32 04/09/22 04:32 Labs: Laboratory Results - last 24 hr 04/08/22 18:36: Urine Color Yellow, Urine Clarity Sl. Cloudy, Urine pH 5.0, Ur Specific [place] 1.015, Urine Protein 30 H, Urine Glucose (UA) Normal, Urine Ketones Negative, Urine Occult Blood 25 H, Urine Nitrite Negative, Urine Bilirubin Negative, Urine Urobilinogen Normal, Ur Leukocyte Esterase Negative, Urine RBC 0-5 SEEN, Urine WBC 0 SEEN, Ur Squamous Epith Cells 0-5 SEEN, Urine Bacteria RARE, Urine Mucus 0 SEEN 04/08/22 18:40: WBC 12.6 H, RBC 2.23 L, Hgb 6.6 L, Hct 23.3 L, MCV 104.5 H, MCH 29.6, MCHC 28.3 L, RDW Std Deviation 64.7 H, RDW Coeff of Marilou 17.2 H, Plt Count 130 L, MPV 12.0, Neut % (Auto) Not Reportable, Absolute Neuts (auto) 8.4 H, Absolute Lymphs (auto) 1.89, Total Counted 100, Neutrophils % (Manual) 66, Band Neutrophils % 1, Lymphocytes % (Manual) 15 L, Monocytes % (Manual) 7, Metamyelocytes % 7 H, Promyelocytes % 4 H, Diff Path Review June04/08/22 18:40: PT 16.3 H, INR 1.3, APTT 34.8 04/08/22 18:40: Sodium 137, Potassium 3.5, Chloride 104, Carbon Dioxide 20.0 L, Anion Gap 13, BUN 97 H, Creatinine 5.76 H, Estim Creat Clear Calc 9.72, Est GFR (MDRD) Af Amer 12 L, Est GFR (MDRD) Non-Af 10 L, BUN/Creatinine Ratio 16.8, Glucose 140 H, Calcium 9.2, Total Bilirubin 0.30, AST 17, ALT 22, Alkaline Phosphatase 33 L, Total Protein 7.7, Albumin 2.8 L, Globulin 4.9 H, Albumin/Globulin Ratio 0.6 L 04/08/22 18:40: Lactic Acid 1.0 04/08/22 20:47: Blood Type A NEGATIVE, Antibody Screen POSITIVE H, Crossmatch See Detail 04/08/22 20:47: Direct Antiglob Test NEG w/POLYSPECIFIC 04/09/22 04:32: WBC 12.5 H, RBC 2.16 L, Hgb 6.4 L, Hct 22.4 L, MCV 103.7 H, MCH 29.6, MCHC 28.6 L, RDW Std Deviation 62.8 H, RDW Coeff of Marilou 17.1 H, Plt Count 148 L, MPV 11.3, Neut % (Auto) Not Reportable, Absolute Neuts (auto) 8.3 H, Absolute Lymphs (auto) 1.74, Total Counted 100, Neutrophils % (Manual) 66, Band Neutrophils % 1, Lymphocytes % (Manual) 14 L, Monocytes % (Manual) 4, Metamyelocytes % 4 H, Myelocytes % 9 H, Promyelocytes % 1 H, Blast Cells % 1 H*, Diff Path Review May foll, Platelet Estimate ADEQUATE, Hypochromasia 1+, Anisocytosis 1+, Microcytosis RARE, Macrocytosis RARE, Stomatocytes RARE 04/09/22 04:32: Sodium 138, Potassium 3.7, Chloride 106, Carbon Dioxide 19.0 L, Anion Gap 13, BUN 95 H, Creatinine 5.70 H, Estim Creat Clear Calc 9.84, Est GFR (MDRD) Af Amer 12 L, Est GFR (MDRD) Non-Af 10 L, BUN/Creatinine Ratio 16.7, Glucose 107 H, Calcium 9.1, Total Bilirubin 0.40, AST 21, ALT 21, Alkaline Phosphatase 32 L, Total Protein 7.2, Albumin 2.6 L, Globulin 4.6 H, Albumin/Globulin Ratio 0.6 L Micro: Microbiology 04/08/22 23:00 Mucosa - Nasopharyngeal Respiratory Panel (PCR) - Final 04/08/22 18:50 Nasal Secretion SARS-CoV-2 & FLU Antigen (Rapid) - Final Radiology Impression Chest X-Ray 04/08/22 18:47 IMPRESSION: Left sided pneumonia. Electronically Signed: Nahid Saucedo MD at 19:12 EST ,
[2022-04-09] MEDS: Nepro Liquid 120 ML LIQUID PO ×3 (11:55→16:53)
--- NOTE | 2022-04-09 12:35 | CASEMGMT ---
RN CM Face to Face with patient for initial transition planning/care coordination assessment. RN CM introduced self and role at [facility]. Patient lying in bed, alert and oriented. Patient willing to participate in assessment and is able to answer all questions appropriately. Care providers, pharmacy, and demographics verified. Patient wishes to discharge home, denies need for home health at this time. Patient states he has no further needs or concerns at this time. CM to follow for discharge planning needs that may arise. PCP: [facility] Specialists: Akin, bleach maker; Marisol, aircraft pilot; Kiran, Lining Cutter; Lisa, vascular [facility]acy[facility] Insurance: [employer] Prescription Benefit: yes Living Will/HPOA: yes, daughter Adrienne Daíz LNOK: , daughter Living Arrangements: Patient lives with and daughter in a 2 story home with bed and bath on first floor. Patient states he is independent at home. Transportation: self, DME/HHC: Patient states he has raised toilet, cpap, and pulse ox at home. Patient does PD at home. Patient has been to [facility] in the past and has had [facility] in the past. Disposition Plan: Patient to discharge home with family support and follow-up plans in place. Alyce CONNORS, RN, CM
[2022-04-09 12:42] LABS: Pathologist Review Reviewed
[2022-04-09 12:45] LABS: Pathologist Review Reviewed
[2022-04-09] MEDS: guaiFENesin/D-Methorphan TAB.SR.12H 1 TABLET PO ×2 (16:53→21:09)
--- NOTE | 2022-04-09 18:50 | DIALYSIS ---
Peritoneal dialysis treatment ready to start. Pt wants to allow heater bag to warm x1 hour prior to starting. Pt explained how he will connect himself. Pt very conscienscious of being clean with procedure. Pt's at bedside capable of helping.
[2022-04-09] MEDS: Pravastatin 40 MG Tablet PO (21:09)
[2022-04-09] MEDS: 0.9% Saline Lock 10 ML Syringe IV (21:09)
[2022-04-10 03:15] VITALS: BP 136/76; PULSE 92; RESP 18; TEMP 36.5; O2SAT 98
[2022-04-10] MEDS: Levothyroxine 125 MCG Tablet PO (05:46)
[2022-04-10] MEDS: Ipratropium Bromide 0.06% NASAL SPRAY 1 SPRAY NASAL ×3 (05:47→20:39)
[2022-04-10 06:11] LABS: Hematocrit 23.1 % (40-54); Hemoglobin 6.6 g/dL (13.0-16.5); Mean Corp Hgb Conc 28.6 g/dL (32-36); Mean Corpuscular Hgb 29.5 pg (27.0-32.0); Mean Corpuscular Volume 103.1 fL (80-94); Mean Platelet Vol. 11.8 fl (6.2-12.0); POSITIVE COUNT YES; POSITIVE MORPHOLOGY YES; Platelet Count 140 K/mm3 (150-450); RBC Distribution Width CV 17.2 % (11.6-14.6); Red Blood Count 2.24 M/mm3 (4.6-6.2); White Blood Count 15.9 K/mm3 (4.4-11.0)
[2022-04-10 06:12] LABS: Differential Indicated MANUAL DIFF
[2022-04-10 06:45] LABS: Blast 1 % (0-0); Lymphocyte 12 % (19-41); Metamyelocyte 5 % (0-1); Monocyte 3 % (0-10); Myelocyte 9 % (0-0); Neutrophil-Band 3 % (0-5); Neutrophil-Segmented 65 % (47-70); Platelet Estimate ADEQUATE (ADEQ); Promyelocyte 2 % (0-0); Total Cells Counted 100 (MANUAL DIFF)
[2022-04-10 06:46] LABS: Absolute Neutrophil Count 10.8 X10^3/uL (2.0-7.7); Anisocytosis 1+; Hypochromasia 2+; Macrocytosis 1+; Microcytosis RARE; Neutrophil # 10.82 X10^3/uL (2.7-7.7); Stomatocyte RARE
[2022-04-10 06:47] LABS: Absolute Lymphocyte Count 1.91 X10^3/uL (0.83-4.51); Lymphocyte # 1.91 X10^3/ul (0.83-4.51)
[2022-04-10 07:15] LABS: Anion Gap 13 (5-15); BUN 88 mg/dL (7-18); BUN/Creat Ratio 16.4 RATIO (10-20); Calcium,Total 9.6 mg/dL (8.5-10.1); Chloride 106 mmol/L (98-107); Creatinine, Serum 5.38 mg/dL (0.70-1.30); EST Glomerular Filtration Rate 11 mL/min (>60); Est Glom Filt Rate - Afr Amer 13 mL/min (>60); Glucose 146 mg/dL (74-106); Potassium 3.4 mmol/L (3.5-5.1); Sodium Level 137 mmol/L (136-145)
[2022-04-10 08:42] VITALS: O2SAT 95
[2022-04-10 09:05] VITALS: BP 121/74; PULSE 96; RESP 16; TEMP 36.8; O2SAT 97
--- NOTE | 2022-04-10 09:06 | NURSING ---
Per Dr Shane's instruction, I informed Elisa in blood bank that Dr Shane would like the [facility] to expand their search for blood products to find one suitable for safe transfusion.
--- NOTE | 2022-04-10 09:11 | NURSING ---
This RN returned a phonecall from Malcom, patient's daughter providing an update aboutthe challenge of finding a match for patient's antibodies. Malcom expressed understanding and thanked me for the update. Malcom says that patient had blood transfusion on March 24 and at [facility]. He follows with Dr Samantha Freed at [facility]. [place] office and [place] office
[2022-04-10] MEDS: Cholecalciferol (VIT D3) 25 MCG TABLET (1,000 UNITS) 50 MCG PO (09:19)
[2022-04-10] MEDS: Nepro Liquid 120 ML LIQUID PO ×3 (09:20→17:30)
[2022-04-10] MEDS: guaiFENesin 1,200 MG Tablet 1200 MG PO ×2 (09:20→20:39)
[2022-04-10] MEDS: Pantoprazole Sodium 20 MG Tablet PO ×2 (09:20→20:39)
[2022-04-10] MEDS: guaiFENesin/D-Methorphan TAB.SR.12H 1 TABLET PO ×2 (09:20→20:39)
[2022-04-10] MEDS: Aspirin E.C. 81 MG Tablet PO (09:20)
[2022-04-10 14:23] VITALS: BP 120/69; PULSE 94; RESP 16; TEMP 37.1; O2SAT 94
--- NOTE | 2022-04-10 15:30 | PN.HOSP_ITS ---
Reason for Visit Reason for Visit: Shortness of breath Subjective Subjective Mr. Segura is a 77-year-old male with a history of end-stage renal disease on peritoneal dialysis and anemia who presented to to the emergency department at [facility] on 04/08/2022 as directed by his outpatient show host (Dr. Weiss). He evidently was noted to be febrile in the office and chest x-ray with possible right lower lobe infiltrate and leukocytosis. He was not hypoxic on presentation and has not been hypoxic during his hospital course. He reported that he had been coughing for months and had shortness of breath for the last several weeks that worsened over the past 3 days prior to presentation. He has been producing small amount of sputum. He has had significant issues recently with anemia for which his last transfusion was on 03/31/2022 but his hemoglobin has trended back down and no acute bleeding has been noted. He recently established with a business strategist in [place] and is awaiting bone marrow biopsy results. Today the patient states that he just feels very tired. He has been on Levaquin for antibiotics. He has no specific complaints other than significant fatigue. We have unfortunately been unable to obtain any blood products for him as of yet as he is Rh negative and has multiple antigens. No blood has been found in the state so far and a nationwide search has been pursued. Objective Data Objective Data Vital Signs: Vital Signs Temp Pulse Resp BP Pulse Ox O2 Del Method 98.8 F 94 16 120/69 94 Room Air 04/10/22 14:23 04/10/22 14:23 04/10/22 14:23 04/10/22 14:23 04/10/22 14:23 04/10/22 14:23 Oxygen Delivery Method Room Air Weight: 67.3 kg Body Mass Index (BMI) 21.9 Intake & Output: Intake and Output for Last 24 Hours 04/08/22 04/09/22 04/10/22 23:59 23:59 23:59 Intake Total 305 / 305 2325 / 2325 Output Total 950 / 950 727 / 727 Balance 305 / 305 1375 / 1375 -727 / -727 Medical Nutrition Assessment Dietitian: Malnutrition Criteria Met Start: 04/09/22 15:05 Freq: Status: Active Protocol: Document 04/09/22 15:05 AG (Rec: 04/09/22 15:05 AG [id number]) Nutrition Malnutrition Evidence of Malnutrition Exists Yes Malnutrition (moderate): Chronic Evidenced By Suboptimal Energy Intake ( Moderate),Physical Changes ( Moderate) Clinical Problem Chronic Disease or Condition Related Malnutrition Etiology chronic, moderate malnutrition related to decreased appetite w/ increased energy needs d/t dialysis Signs/Symptoms as evidenced by estimated PO intake meeting <75% of estimated energy needs > 3 months; Obvious signs of moderate muscle wasting/fat loss evident in orbital, temporal, clavicle, and acromion areas Status Active Problem Recommendation Dietitian Recommendations/Changes continue cardiac diet given evidence of malnutrition; continue nepro carb steady ONS 4x/day for additional calories/protein if consumed Lab / Micro Data Result Diagrams: 04/10/22 05:00 04/10/22 05:00 Labs: Laboratory Results - last 24 hr 04/10/22 05:00: WBC 15.9 H, RBC 2.24 L, Hgb 6.6 L, Hct 23.1 L, MCV 103.1 H, MCH 29.5, MCHC 28.6 L, RDW Std Deviation 63.0 H, RDW Coeff of Marilou 17.2 H, Plt Count 140 L, MPV 11.8, Neut % (Auto) Not Reportable, Absolute Neuts (auto) 10.8 H, Absolute Lymphs (auto) 1.91, Total Counted 100, Neutrophils % (Manual) 65, Band Neutrophils % 3, Lymphocytes % (Manual) 12 L, Monocytes % (Manual) 3, Metamyelocytes % 5 H, Myelocytes % 9 H, Promyelocytes % 2 H, Blast Cells % 1 H*, Diff Path Review May foll, Platelet Estimate ADEQUATE, Hypochromasia 2+, Anisocytosis 1+, Microcytosis RARE, Macrocytosis 1+, Stomatocytes RARE 04/10/22 05:00: Sodium 137, Potassium 3.4 L, Chloride 106, Carbon Dioxide 18.0 L , Anion Gap 13, BUN 88 H, Creatinine 5.38 H, Estim Creat Clear Calc 10.60, Est GFR (MDRD) Af Amer 13 L, Est GFR (MDRD) Non-Af 11 L, BUN/Creatinine Ratio 16.4, Glucose 146 H, Calcium 9.6, Folate 37.70 Micro: Microbiology 04/10/22 06:30 Sputum, Expectorated/Coughed Gram Stain - Final 04/08/22 18:36 Urine, Clean Catch Urine Culture - Final Culture exhibits no growth. 04/08/22 18:30 Urine, Clean Catch Streptococcus pneumoniae Antigen (M - Final 04/08/22 18:30 Urine, Clean Catch Legionella Antigen - Final 04/08/22 23:00 Mucosa - Nasopharyngeal Respiratory Panel (PCR) - Final 04/08/22 18:50 Nasal Secretion SARS-CoV-2 & FLU Antigen (Rapid) - Final Physical Exam Const alert, oriented x3, no apparent distress and average body habitus Constitutional Narrative: Elderly, chronically ill-appearing male, no acute distress, nontoxic, family at bedside-daughter and HEENT head/scalp atraumatic and moist oral mucous membranes HEENT Narrative: Dentition is poor, Mallampati is 2, no thrush Head and Scalp: normocephalic Resp normal respiratory effort, no retractions, no use of accessory muscles and No clear to auscultation bilaterally Resp Narrative: Crackles noted in bilateral bases Auscultation: crackles; Negative for rhonchi or wheezes Cardio regular rate, regular rhythm, S1 normal heart sound, S2 normal heart sound, no murmurs, no rub, no gallops and no clicks GI normal to inspection, nondistended, normoactive bowel sounds, soft to palpation and non-tender Extremity no clubbing, cyanosis or edema Extremity Narrative: 2+ pedal pulses Neuro oriented x3, moves all extremities and no focal motor deficits Neuro Narrative: Significant generalized weakness Speech: speech normal Psych Psych Narrative: Appears fatigued but pleasant and appropriately interactive Assessment & Plan Assessment/Plan (1) Anemia: (2) Pneumonia: (3) Dyspnea on exertion: (4) Leukocytosis: (5) Thrombocytopenia: (6) Hypokalemia: (7) Hyperglycemia: PLAN: Plan Chronic anemia -Patient markedly symptomatic with shortness of breath history of CAD -Current hemoglobin is 6.6 -No obvious signs of bleeding -Recently underwent bone marrow biopsy at his business strategist office in [place] -Results are pending -Blood ordered however patient with Rh- blood and antibodies/antigens -Nationwide search for compatible blood ongoing -Repeat CBC in a.m. -CBC has overall been stable in the last 48 hours Pneumonia-left lower lobe--> possible -Patient with bandemia and leukocytosis on presentation -Chest x-ray showed possible left lower lobe infiltrate -Check CT of the chest -Continue azithromycin and ceftriaxone -Sputum culture done and so far only shows 2+ gram-positive cocci on Gram stain -Await final cultures -COVID and respiratory viral panel are negative -Blood cultures are pending -Patient has not been febrile since hospitalization Leukocytosis -Suspect related to the above -Did trend up slightly -Awaiting cultures -Continue ceftriaxone and azithromycin -Repeat CBC in a.m. Thrombocytopenia -Likely related to antibiotics as this was new after admission -Mild -Continue to monitor ESRD -Nephrology consulted -Continue peritoneal dialysis as ordered -Follows as an outpatient with Dr. Gerardo -Current peritoneal dialysis schedule is Tuesday, Tuesday, Hyperglycemia -This has been consistent -Check hemoglobin A1c -No documented previous diabetes Hypothyroidism -Continue home levothyroxine GERD -Continue home PPI Hyperlipidemia -continue on pravastatin History of hypogonadism -Outpatient follow-up DVT prophylaxis -Continue SCDs -Chemoprophylaxis held secondary to severe anemia CODE STATUS Full code Charges/Coding Visit Charges Inpatient E&M: 18257 Subs Hosp L2
--- NOTE | 2022-04-10 15:36 | CT_ITS ---
EXAM: CT CHEST WITHOUT INTRAVENOUS CONTRAST CLINICAL INDICATION: sob TECHNIQUE: Helically acquired images were obtained of the chest without intravenous contrast. This CT exam was performed using one or more of the following dose reduction techniques: automated exposure control, adjustment of the mA and/or kV according to patient size, and/or use of iterative reconstruction technique. This report was created using [employer] report generation technology. COMPARISON: None. FINDINGS: LUNGS AND PLEURAL SPACES: There is a slightly spiculated nodule in the right lung apex that measures 1.9 x 1.6 x 2.2 cm suspicious for malignancy. There is scarring seen within the lingula and within the lung bases. No pneumothorax. There is no consolidation or effusion. HEART: Unremarkable. Heart size is normal. No pericardial effusion. No significant coronary artery calcifications. MEDIASTINUM: Unremarkable. No mediastinal or hilar adenopathy. Esophagus is unremarkable. No hiatal hernia. THYROID: Unremarkable. No thyroid lesions. BONES/JOINTS: See above. VASCULATURE: Unremarkable. Thoracic aorta is non-dilated. CT/Chest without Contrast IMPRESSION: Spiculated lesion in the right lung apex suspicious for malignancy. Further evaluation with PET CT scan may be beneficial. There is minimal scarring in the lung bases. Electronically Signed: Jens Zuniga MD at 20:18 EST ,
[2022-04-10 20:35] VITALS: BP 128/66; PULSE 106; RESP 16; TEMP 37.3; O2SAT 95
[2022-04-10] MEDS: Pravastatin 40 MG Tablet PO (20:39)
[2022-04-10] MEDS: 0.9% Saline Lock 10 ML Syringe IV (20:40)
[2022-04-10 22:10] VITALS: BP 131/72; PULSE 102; RESP 16; TEMP 37.3; O2SAT 96
[2022-04-11 04:34] VITALS: BP 121/70; PULSE 96; RESP 16; TEMP 36.9; O2SAT 98
[2022-04-11] MEDS: Levothyroxine 125 MCG Tablet PO (04:36)
[2022-04-11] MEDS: Ipratropium Bromide 0.06% NASAL SPRAY 1 SPRAY NASAL (04:36)
[2022-04-11 07:13] LABS: Hemoglobin 6.3 g/dL (13.0-16.5); Mean Corp Hgb Conc 28.6 g/dL (32-36); Mean Corpuscular Volume 104.8 fL (80-94); Mean Platelet Vol. 11.2 fl (6.2-12.0); POSITIVE COUNT YES; POSITIVE MORPHOLOGY YES; Platelet Count 145 K/mm3 (150-450); RBC Distribution Width CV 17.3 % (11.6-14.6); RBC Distribution Width SD 65.1 fl (35.1-43.9); White Blood Count 15.7 K/mm3 (4.4-11.0)
[2022-04-11 07:19] LABS: Differential Indicated MANUAL DIFF
[2022-04-11 07:32] LABS: Anion Gap 11 (5-15); BUN 88 mg/dL (7-18); BUN/Creat Ratio 16.9 RATIO (10-20); Calcium,Total 9.2 mg/dL (8.5-10.1); Chloride 105 mmol/L (98-107); Creatinine, Serum 5.21 mg/dL (0.70-1.30); EST Glomerular Filtration Rate 11 mL/min (>60); Est Glom Filt Rate - Afr Amer 14 mL/min (>60); Estimated Creatinine Clearance 10.99 ml/min; Glucose 105 mg/dL (74-106); Potassium 3.4 mmol/L (3.5-5.1); Sodium Level 136 mmol/L (136-145)
[2022-04-11 08:08] LABS: Hemoglobin A1c < 3.8 % (3.8-5.6)
[2022-04-11 08:10] LABS: Anisocytosis 2+; Blast 2 % (0-0); Hypochromasia 1+; Lymphocyte 6 % (19-41); Metamyelocyte 10 % (0-1); Myelocyte 4 % (0-0); Neutrophil-Band 8 % (0-5); Neutrophil-Segmented 69 % (47-70); Nucleated Red Bld Cells,Manual 1 % (0-5); Promyelocyte 1 % (0-0); Total Cells Counted 100 (MANUAL DIFF)
[2022-04-11 08:11] LABS: Hypersegmented Neutrophils RARE; Polychromasia RARE
[2022-04-11 08:12] LABS: Stomatocyte RARE
[2022-04-11 08:14] LABS: Absolute Neutrophil Count 11.9 X10^3/uL (2.0-7.7)
[2022-04-11 10:17] VITALS: BP 118/63; PULSE 95; RESP 16; TEMP 37; O2SAT 94
[2022-04-11] MEDS: Cholecalciferol (VIT D3) 25 MCG TABLET (1,000 UNITS) 50 MCG PO (10:26)
[2022-04-11] MEDS: Pantoprazole Sodium 20 MG Tablet PO (10:26)
[2022-04-11] MEDS: guaiFENesin/D-Methorphan TAB.SR.12H 1 TABLET PO (10:26)
[2022-04-11] MEDS: Nepro Liquid 120 ML LIQUID PO (10:26)
[2022-04-11] MEDS: guaiFENesin 1,200 MG Tablet 1200 MG PO (10:26)
--- NOTE | 2022-04-11 11:00 | DS.PCM_ITS ---
Providers Date of Admission: 04/09/22 Date of Discharge: 04/11/22 Primary Care Physician: Dr. Ulises Cm MD Consultations 04/09/22 02:14 Consult: Nephrology Routine Consulting Provider: Shavonne Poe Reason for Consult: ESRD on peritoneal dialysis 3x/week. Follows with outside provider EMERGENT Consult: No MD Notified: Yes Date Notified: 04/09/22 Time Notified: 06:43 Method of Notification: Answering Service Reason For Visit: ANEMIA, CAP Diagnosis Discharge Diagnosis (1) Anemia: Status: Acute Code(s): D64.9 - Anemia, unspecified (2) Pneumonia: Status: Acute Code(s): J18.9 - Pneumonia, unspecified organism (3) Dyspnea on exertion: Status: Acute Code(s): R06.09 - Other forms of dyspnea (4) Leukocytosis: Status: Acute Code(s): D72.829 - Elevated white blood cell count, unspecified (5) Thrombocytopenia: Status: Acute Code(s): D69.6 - Thrombocytopenia, unspecified (6) Hypokalemia: Status: Acute Code(s): E87.6 - Hypokalemia (7) Hyperglycemia: Status: Acute Code(s): R73.9 - Hyperglycemia, unspecified Medications at Discharge Home Medications aspirin 81 mg tablet,delayed release (Adult Low Dose Aspirin) 81 mg PO DAILY 02/19/15 cholecalciferol (vitamin D3) 25 mcg (1,000 unit) tablet (Vitamin D3) 2,000 unit PO DAILY 08/18/21 levothyroxine 125 mcg tablet (Euthyrox) 125 mcg PO DAILY 08/18/21 pravastatin 40 mg tablet 40 mg PO DAILY 08/18/21 calcitriol 0.5 mcg capsule 0.5 mcg PO 04/07/22 vitamin B complex and vitamin C no.20-folic acid 1 mg capsule ([place] Caps) 1 cap PO DAILY 04/07/22 ipratropium bromide 21 mcg (0.03 %) nasal spray 2 spray intranasal TID post nasal drip #30 mL 04/08/22 omeprazole magnesium 20 mg tablet,delayed release (Prilosec OTC) 20 mg PO BID #60 tabs 04/08/22 levofloxacin 500 mg tablet 500 mg PO Q48H #14 tabs 04/11/22 Hospital Course Operations None Procedures - (Chest x-ray/CT of the chest) Summary of Care Provided Minutes Spent on Discharge: 40 Hospital Course: Mr. Segura is a 77-year-old male with a history of end-stage renal disease on peritoneal dialysis and anemia who presented to to the emergency department at [facility] on 04/08/2022 as directed by his outpatient manager social media (Dr. Amaya).? He evidently was noted to be febrile in the office and chest x-ray with possible right lower lobe infiltrate and leukocytosis.? He was not hypoxic on presentation and has not been hypoxic during his hospital course.? He reported that he had been coughing for months and had shortness of breath for the last several weeks that worsened over the past 3 days prior to presentation.? He has been producing small amount of sputum.? 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 He has had significant issues recently with anemia for which his last transfusion was on 03/31/2022 but his hemoglobin has trended back down and no acute bleeding has been noted.? He recently established with a special education professional in [place] and is awaiting bone marrow biopsy results. His hemoglobin on admission was found to be 7.4 with a repeat 6 hours later at 6.6 and he was checked daily following and found to be 6.4-6.6-6.3. Blood was ordered for transfusion h owever the patient is Rh- and has multiple antigens and unfortunately we were unable to match his blood locally. Statewide search was pursued by the [place] and no matching blood was identified then. Nationwide search had been pursued and we have not yet found a match. Blood bank did not anticipate a match until early in the week. With regards to his breathing issues he did have a leukocytosis on presentation with a left shift and bandemia so there was concern about a pneumonia. He was placed on azithromycin and ceftriaxone for CAP coverage. He never required oxygen during his hospital course. With his history of more chronic shortness of breath and cough I did obtain a CT of his chest on 04/10/2022 that showed a slightly spiculated nodule in the right apex of the lung that was 1.9 x 1.6 x 2.2 cm that was suspicious for malignancy, bronchiectasis, scarring in the lingula and within the lung base but was otherwise unremarkable. We are unfortunately still unable to get him blood. I had a long discussion with the patient and his son on the morning of 04/11/2022 discussing the findings of the CAT scan and need for biopsy. He remained on room air and overall stated he was feeling better. After extensive discussion with both he and his son they decided they would like to go home as his anemia is not new rather than wait for his blood transfusion here and follow-up with his oncologist as an outpatient. I did receive a message and tried to talk to the outpatient oncologist that was on-call for his primary oncologist which is out of town and tried to numbers. The first number led to an answering service at which nobody picked up in the second number a gentleman picked up from the answering service and was unable to get a hold of the on-call physician. I did ask family what the discussion was and they indicated that they wanted me to give the nonmatching blood and deal with the repercussions afterwards. I discussed with him that I did not feel comfortable doing that here because I was concerned about possible complications related to giving that blood. They voiced understanding. We did obtain a copy of the CT scan for him to take to his special education professional/oncologist so a biopsy could be obtained as an outpatient. He has a follow-up appointment with his special education professional on Tuesday of this week. Given the fact that his anemia was stable and chronic without any signs of acute ongoing blood loss and the patient wanting to go home we went ahead and discharge him home in stable condition. He will complete a 7-day course of antibiotics with Levaquin 500 mg every other day over the next 14 days as with his bronchiectasis he would be at risk for pseudomonal infection. I also discussed with him the importance of ongoing incentive spirometry and Acapella therapy. Both he and his son voiced understanding. Discharge diagnoses: Suspected community-acquired pneumonia Chronic [id number] in progress Right upper lobe spiculated lung mass CBC with abnormal differential Thrombocytopenia End-stage renal disease-PD dependent Hypothyroidism GERD Hyperlipidemia History of hypogonadism Physical Exam Const alert, oriented x3, no apparent distress and average body habitus Constitutional Narrative: Elderly, chronically ill-appearing male, no acute distress, nontoxic, son is at the bedside, patient appears as if he is feeling better than yesterday General Appearance: cooperative, comfortable, well kempt and well developed Orientation / Consciousness: awake, oriented to person, oriented to place and oriented to time Exam Limitations: no limitations HEENT normocephalic, head/scalp atraumatic and moist oral mucous membranes HEENT Narrative: Dentition is fair for age, Mallampati is 2, no thrush Eyes PERRL and EOMs intact bilaterally Eyes Narrative: Conjunctival pallor, no scleral icterus Neck no lymphadenopathy and supple Neck Narrative: Trachea midline, no thyroid enlargement Resp normal respiratory effort, no retractions, no use of accessory muscles and No clear to auscultation bilaterally Auscultation: Negative for crackles, rhonchi or wheezes Cardio regular rate, regular rhythm, S1 normal heart sound, S2 normal heart sound, no murmurs, no rub, no gallops and no clicks GI normal to inspection, nondistended, normoactive bowel sounds, soft to palpation and non-tender Extremity no clubbing, cyanosis or edema Extremity Narrative: 2+ pedal pulses Skin no wounds, skin turgor normal and no jaundice Skin Narrative: Scattered bruising Neuro oriented x3, CN's II-XII intact bilaterally, moves all extremities and no focal motor deficits Neuro Narrative: Significant generalized weakness Speech: speech normal Psych affect normal Psych Narrative: Appears much less fatigued today, pleasant and appropriately interactive Medical Records Data Medical Nutrition Assessment Dietitian: Malnutrition Criteria Met Start: 04/09/22 15:05 Freq: Status: Active Protocol: Document 04/09/22 15:05 (Rec: 04/09/22 15:05 [id number]) Nutrition Malnutrition Evidence of Malnutrition Exists Yes Malnutrition (moderate): Chronic Evidenced By Suboptimal Energy Intake ( Moderate),Physical Changes ( Moderate) Clinical Problem Chronic Disease or Condition Related Malnutrition Etiology chronic, moderate malnutrition related to decreased appetite w/ increased energy needs d/t dialysis Signs/Symptoms as evidenced by estimated PO intake meeting <75% of estimated energy needs > 3 months; Obvious signs of moderate muscle wasting/fat loss evident in orbital, temporal, clavicle, and acromion areas Status Active Problem Recommendation Dietitian Recommendations/Changes continue cardiac diet given evidence of malnutrition; continue nepro carb steady ONS 4x/day for additional calories/protein if consumed Weight / BMI Weight Weight: 67.6 kg Body Mass Index (BMI) 21.9 ABG / Lab / Microbiology Data Result Diagrams: 04/11/22 06:20 04/11/22 06:20 Laboratory: Laboratory Results - last 24 hr 04/11/22 06:20: Sodium 136, Potassium 3.4 L, Chloride 105, Carbon Dioxide 20.0 L , Anion Gap 11, BUN 88 H, Creatinine 5.21 H, Estim Creat Clear Calc 10.99, Est GFR (MDRD) Af Amer 14 L, Est GFR (MDRD) Non-Af 11 L, BUN/Creatinine Ratio 16.9, Glucose 105, Calcium 9.2 04/11/22 06:20: WBC 15.7 H, RBC 2.10 L, Hgb 6.3 L, Hct 22.0 L, MCV 104.8 H, MCH 30.0, MCHC 28.6 L, RDW Std Deviation 65.1 H, RDW Coeff of Marilou 17.3 H, Plt Count 145 L, MPV 11.2, Neut % (Auto) Not Reportable, Absolute Neuts (auto) 11.9 H, Absolute Lymphs (auto) 0.90, Total Counted 100, Neutrophils % (Manual) 69, Band Neutrophils % 8 H, Lymphocytes % (Manual) 6 L, Metamyelocytes % 10 H, Myelocytes % 4 H, Promyelocytes % 1 H, Blast Cells % 2 H*, Nucleated RBCs/100 WBC 1, Diff Path Review May foll, Hypersegmented Neuts RARE H, Polychromasia RARE, Hypochromasia 1+, Anisocytosis 2+, Stomatocytes RARE 04/11/22 06:20: Hemoglobin A1c < 3.8 L Microbiology: Microbiology 04/08/22 18:46 Blood Culture (Wb) - Anticubital Right Blood Culture - Preliminary No growth in 48 hours. 04/08/22 18:40 Blood Culture (Wb) - Anticubital Left Blood Culture - Preliminary No growth in 48 hours. 04/10/22 06:30 Sputum, Expectorated/Coughed Gram Stain - Final 04/10/22 06:30 Sputum, Expectorated/Coughed Respiratory Culture - Preliminary Appears to be normal respiratory sohan. Further studies to follow. 04/08/22 18:36 Urine, Clean Catch Urine Culture - Final Culture exhibits no growth. 04/08/22 18:30 Urine, Clean Catch Streptococcus pneumoniae Antigen (M - Final 04/08/22 18:30 Urine, Clean Catch Legionella Antigen - Final 04/08/22 23:00 Mucosa - Nasopharyngeal Respiratory Panel (PCR) - Final 04/08/22 18:50 Nasal Secretion SARS-CoV-2 & FLU Antigen (Rapid) - Final Radiography Diagnostic Testing: Radiology Impression Chest CT 04/10/22 15:36 IMPRESSION: Spiculated lesion in the right lung apex suspicious for malignancy. Further evaluation with PET CT scan may be beneficial. There is minimal scarring in the lung bases. Electronically Signed: Jens Zuniga MD at 20:18 EST , D/C Instructions Discharge Diet: Low fat / Low cholesterol and Renal Diet Discharge Activity: - (Please take it easy with modified activity until you follow-up with oncology and blood transfusion can be arranged) Meaningful Use Info Meaningful Use Diagnoses (Choose all that apply): None applicable Discharge Plan Admission Admit Date/Time: 04/09/22 10:44 Primary Reason for Your Visit: Shortness of breath Attending Provider: Ling Shane Primary Care Provider: Ulises Cm Consulting Providers: Shavonne Poe ; Glo Christopher ; Aristides Messina Instructions Additional Instructions / Restrictions: 1. Follow-up with your special education professional as scheduled 2. While you are hospitalized we did a CT of your chest given your issue with chronic shortness of breath and coughing a right upper lobe lung mass was identified that was 1.9 x 1.6 x 2.2 cm and was slightly spiculated and suspicious for malignancy. As per our discussion this will need biopsied. Please take the CT scan that we gave you at discharge to your special education professional/oncologist for follow-up. Discharge Orders/Prescriptions Prescriptions: New levofloxacin 500 mg tablet 500 mg PO Q48H Qty: 14 0RF Rx Instructions: take every other day for 14 days Continued levothyroxine [Euthyrox] 125 mcg tablet 125 mcg PO DAILY pravastatin 40 mg tablet 40 mg PO DAILY calcitriol 0.5 mcg capsule 0.5 mcg PO Rx Instructions: 3 DAYS A WEEK [place] Caps 1 mg capsule 1 cap PO DAILY Rx Instructions: 3 DAYS A WEEK ipratropium bromide 21 mcg (0.03 %) spray,non-aerosol 2 spray intranasal TID MDD 6 sprays Qty: 30 0RF Rx Instructions: administer into each nostril omeprazole magnesium [Prilosec OTC] 20 mg tablet,delayed release (DR/EC) 20 mg PO BID Qty: 60 2RF aspirin [Adult Low Dose Aspirin] 81 MG tablet,delayed release (DR/EC) 81 mg PO DAILY cholecalciferol (vitamin D3) [Vitamin D3] 25 mcg (1,000 unit) tablet 2,000 unit PO DAILY Referrals / Follow Up: Ulises Cm MD [Primary Care Provider] - See Referral Note (As needed) Disposition Disposition (needs filled in before D/C Order can be placed): Home, Self Care Charges/Coding Visit Charges Inpatient E&M: 15419 Disch Hosp >30min
[2022-04-12 08:08] LABS: Vitamin B12 775 pg/mL (211-911)
[2022-04-12 13:22] LABS: Pathologist Review Reviewed
[2022-04-13 09:30] LABS: Pathologist Review Reviewed
== END 2022-04-11 12:26 | disposition home or self-care (01) | DRG 193 ==
LOC: ED 20:20 → PCU 21:19
PROVIDERS: Internal Medicine; Nurse Practitioner Adult Health; Admitting Provider Internal Medicine; Emergency Provider Emergency Medicine; Visit Provider Internal Medicine
DX: J18.9 Pneumonia, unspecified organism (principal); N18.6 End stage renal disease; I12.0 Hypertensive chronic kidney disease with stage 5 chronic kidney disease or end stage renal disease; D69.6 Thrombocytopenia, unspecified; D63.1 Anemia in chronic kidney disease; D63.8 Anemia in other chronic diseases classified elsewhere; Z99.2 Dependence on renal dialysis; E78.00 Pure hypercholesterolemia, unspecified; E78.5 Hyperlipidemia, unspecified; E03.9 Hypothyroidism, unspecified; D53.9 Nutritional anemia, unspecified; D72.825 Bandemia; K21.9 Gastro-esophageal reflux disease without esophagitis; I25.10 Atherosclerotic heart disease of native coronary artery without angina pectoris; E87.6 Hypokalemia; G47.33 Obstructive sleep apnea (adult) (pediatric); Z80.0 Family history of malignant neoplasm of digestive organs; R73.9 Hyperglycemia, unspecified; Z79.82 Long term (current) use of aspirin; R91.8 Other nonspecific abnormal finding of lung field; R05.9 Cough, unspecified; R06.02 Shortness of breath
CPT/HCPCS: 36415; 71045; 71046; 71250; 80048; 80053; 81001; 82607; 82746; 83036; 83605; 83880; 85025; 85610; 85730; 86850; 86870; 86880; 86900; 86901; 87040; 87070; 87086; 87205; 87428; 87449; 87633; 90947; 93005; 94668; 97802; 99252; 99284; J7040; A4216; G0257; G0463; J0696

== ENCOUNTER 2023-09-28 12:56 | Outpatient (RCR) | payer MEDICARE, OTHER, SELFPAY ==
[2023-09-28 13:18] VITALS: BP 112/55; PULSE 100; RESP 18; TEMP 36.4; BMI 20.8
--- NOTE | 2023-09-28 16:02 | HP.PCM_ITS ---
History of Present Illness Date of Service: 09/28/23 Chief Complaint: Left foot ulcerations History of Wound: Left foot ulceration secondary to PAD Progress of Wound: Mr. Gasca is a 78-year-old male presenting to the wound care center today for evaluation secondary to being declined by hospitalist because he is currently on peritoneal dialysis. Patient has been seen at [facility] for his red blood disorder and trying to get transfusion due to low hemoglobin has been a very difficult task and has unable to receive blood transfusion at this time. The patient's daughter states his hemoglobin is around 4. The patient is very weak and is able to walk some but not far. They are interested in more wound care advice for at home as palliative care will not be offered during hospice at this time. Once the peritoneal dialysis stops hospice will be activated. He does admit to pain to the left lower extremity. Left lower extremity ABIs from an outside facility measure 0.8. He denies trauma. Denies constitutional symptoms. No acute complaints at this time. [facility] Medical History MDS (myelodysplastic syndrome), high grade Hyperglycemia End stage chronic kidney disease Dyspnea on exertion Hypertension, benign Hyperlipidemia LDL goal <100 Hyperglycemia Overactive bladder Transient amnesia Carotid artery plaque Secondary hyperparathyroidism CAD (coronary artery disease) Hypothyroidism BMI 24.0-24.9, adult Vitamin D deficiency Cardiovascular risk factor ESRD (end stage renal disease) on dialysis Low HDL (under 40) Osteoarthritis of lumbar spine Abnormal magnetic resonance imaging of lumbar spine Dialysis patient Insomnia Bilateral hip pain Erectile dysfunction Obstructive sleep apnea on CPAP Depression screening Constipation Cough Benign prostatic hyperplasia Hypogonadism in male Thyroid disease Neuropathy Kidney failure Kidney disease High cholesterol High blood pressure Heart disease Cataract Home Medications ?Medication ?Instructions ?Recorded ?Last Taken ?Type aspirin 81 mg tablet,delayed 81 mg PO DAILY 02/19/15 Unknown History release (Adult Low Dose Aspirin) cholecalciferol (vitamin D3) 25 2,000 unit PO DAILY 08/18/21 Unknown History mcg (1,000 unit) tablet (Vitamin D3) levothyroxine 125 mcg tablet 125 mcg PO DAILY 08/18/21 Unknown History (Euthyrox) pravastatin 40 mg tablet 40 mg PO DAILY 08/18/21 Unknown History calcitriol 0.5 mcg capsule 0.5 mcg PO 04/07/22 Unknown History ipratropium bromide 21 mcg (0.03 2 spray intranasal TID post nasal 04/08/22 Unknown Rx %) nasal spray drip #30 mL omeprazole magnesium 20 mg 20 mg PO BID #60 tabs 04/08/22 Unknown Rx tablet,delayed release (Prilosec OTC) levofloxacin 500 mg tablet 500 mg PO Q48H #14 tabs 04/11/22 Unknown Rx methadone 5 mg tablet 5 mg PO DAILY 09/28/23 Unknown History midodrine 5 mg tablet 5 mg PO BID 09/28/23 Unknown History oxycodone 10 mg tablet 10 mg PO Q4H 09/28/23 Unknown History sennosides 8.6 mg-docusate sodium 1 tab PO BID PRN PRN constipation 09/28/23 Unknown History 50 mg tablet (Stool Softener-Laxative) vitamin B complex and vitamin C 1 cap PO DAILY 09/28/23 Unknown History no.20-folic acid 1 mg capsule (Triphrocaps) vitamin B complex-vitamin C-folic 1 tab PO DAILY 09/28/23 Unknown History acid 0.8 mg tablet (Eli-Jonathan) Allergy/AdvReac Type Severity Reaction Status Date / Time No Known Allergies Allergy Verified 09/28/23 13:17 Family History Father Diabetes Heart disease Mother Hypertension Brother COVID-19 Brother Colon cancer Sister Lung cancer Other Kidney disease Parkinson disease Thyroid disorder Surgical History S/P CABG (coronary artery bypass graft) History of prostate surgery Hx of cataract surgery H/O heart bypass surgery Social History number of children: 3 Smoking Status: Never smoker alcohol intake: current alcohol intake frequency: 0-2 drinks per day substance use type: does not use diet: other well-balanced diet: daily or most days caffeine: Yes what type of physical activity do you participate in: none Vital Signs Vital Signs Vital Signs: 09/28/23 13:18 Temperature 97.5 F L Temperature Source Temporal Pulse Rate 100 Respiratory Rate 18 Blood Pressure 112/55 L Blood Pressure Mean 74 Blood Pressure Source Monitor Blood Pressure Position Semi-Fowlers Blood Pressure Location Left Arm Oxygen Delivery Method Room Air Weight Weight: 61.235 kg Body Mass Index (BMI) 20.8 Physical Exam Narrative Vascular: DP and PT pulses are absent to left lower extremity. Nonpitting edema to the left lower extremity. Evidence of cyanosis appreciated to left lower extremity. Skin temperature is warm to cool to the left lower extremity. No focal increase appreciated. Neurological: Light touch intact. Patient response to painful stimuli. Dermatological: Evidence of 2 areas of precallus lesions to the level of the left first metatarsal and distal hallux. No open lesions or abrasions. Nonpitting edema appreciate left lower extremity. Evidence of cyanosis to the left lower extremity. Macerated webspaces 1 through 4 to left lower extremity. Musculoskeletal: Muscle strength is deferred. Moderate palpable tenderness appreciated to the left lower extremity. No pain with calf pressure. Debridement Note Debridement Note Post-Debridement Measurements and Additional Note: Post-Debridement Measurements/Treatment - Nurse 1 - General Ulcer Assessment Start: 09/28/23 13:17 Freq: Status: Active Protocol: CLEM Activity Type Activity Date Activity User E-sign Co-sign Detail Recorded Client Recorded Date Recorded By Document 09/28/23 13:18 KW fcg 09/28/23 13:38 KW 09/28/23 13:18 WC - Today's Visit Information Type of service Initial Visit Arrival Mode Wheelchair Accompanied by AND DAUGHTER Patient Identification Verified (Name & Yes ) Height and Weight Height 5 ft 7.5 in Weight 61.235 kg Weight in Pounds 135.0 lbs Weight Measurement Method Estimated by Patient Body Mass Index (BMI) 20.8 BMI Classification Normal BSA - Aquiles 1.72 Vital Signs Temperature (97.8 F-99.1 F) 97.5 F L Temperature Source Temporal Pulse Rate (60-100) 100 Pulse Location Monitor Respiratory Rate (12-18) 18 Respiratory rate source Observation Oxygen Delivery Method Room Air Blood Pressure (90/60-120/80) 112/55 L Blood Pressure Mean 74 Source Monitor Position Semi-Fowlers Blood Pressure Location Left Arm History Since Last Visit- (Skip if this is Patient's initial visit) Left Footwear Regular Shoe Right Footwear Regular Shoe Pain Scale: 0-10 Numeric Is Patient Pain Free? No LT FOOT -Description Sharp -Intensity 10 -Alleviating Factors/Interventions Medication, Medicate when due Communication Assessment Preferred language Georgian Supervisor Forming And Tempering Required No Able to Read Yes Able to Write Yes Communication Tools None Caregiver Communication Skills No Impairment Impairment Right Hearing Abillity Normal Left Hearing Abillity Normal Visual Assistive Devices Glasses Teaching Assessment Preferences Verbal,Written, Demonstration Barriers to Learning None Readiness To Learn Excellent Willingness to Engage in Self Management High Activies Readiness to Engage in Self Management High Activities Anxiety Level Calm Cooperation Cooperative Perception Coherent Interest in Health Problem Asks Questions Education Importance Acknowledges Need Does Patient Smoke tobacco or other No substances Smoking Status Never smoker Is Patient Diabetic No Functional Assessment Recent Decline in Ability to Perform Ambulation, Bathing,Lower Body Dressing, Toileting, Transferring, Upper Body Dressing Culture/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 Telegraphic Typewriter Installer to contact place of jainism No WC - Nurse 1 - General Ulcer Measurement Start: 09/28/23 13:17 Freq: Status: Active Protocol: Activity Type Activity Date Activity User E-sign Co-sign Detail Recorded Client Recorded Date Recorded By Document 09/28/23 13:18 KW fcg 09/28/23 13:38 KW 09/28/23 13:18 Wound Center Nurse 1 #2 LT HALLUX -Current Size (cm) - Length 0.1 -Current Size (cm) - Width 0.1 -Current Size (cm) - Depth 0.1 -Total Square Cm 0.01 -Date of Last Picture (Recall this 09/28/23 field) -Exudate Amt None Present -Texture (Raquel-wound Skin Appearance) Assessed -Moisture (Raquel-wound Skin Appearance) Assessed -Color (Raquel-wound Skin Appearance) Assessed, Hemosiderin Staining #1 LT GREAT TOE -Current Size (cm) - Length 0.1 -Current Size (cm) - Width 0.1 -Current Size (cm) - Depth 0.1 -Total Square Cm 0.01 -Date of Last Picture (Recall this 09/28/23 field) -Photo Taken Yes -Exudate Amt None Present -Necrosis Amt Large (67-100%) -Necrotic Tissue Type Adherent Slough -Texture (Raquel-wound Skin Appearance) Assessed -Moisture (Raquel-wound Skin Appearance) Assessed -Color (Raquel-wound Skin Appearance) Assessed, Hemosiderin Staining -Temperature (Raquel-wound Skin No Abnormality Appearance) (Pt Warm) -Tenderness on Palpation (Raquel-wound No Skin Appearance) -Ulcer Cleansing Rinsed/ Irrigated with Saline -Foul Odor after Cleansing No -Anesthetic Used 5% Lidocaine Gel Left Calf (cm) 27.5 Left Ankle (cm) 20.5 - Nurse 2 - General Ulcer CM Notes Start: 09/28/23 13:17 Freq: Status: Active Protocol: Activity Type Activity Date Activity User E-sign Co-sign Detail Recorded Client Recorded Date Recorded By Document 09/28/23 14:05 000 09/28/23 14:10 09/28/23 14:05 Wound Center Nurse 2 #2 LT HALLUX -Correct Patient No -Correct Side, Site, Position No -Correct Procedure No -Procedure Performed No -Wound/Ulcer Outcome Not Healed -Offloading No -Other Pressure Reduction prafo #1 LT GREAT TOE -Correct Patient No -Correct Side, Site, Position No -Correct Procedure No -Procedure Performed No -Wound/Ulcer Outcome Not Healed Pain Scale: 0-10 Numeric Is Patient Pain Free? Yes - Nurse 3 - General Ulcer D/C NN Start: 09/28/23 13:17 Freq: Status: Active Protocol: Activity Type Activity Date Activity User E-sign Co-sign Detail Recorded Client Recorded Date Recorded By Document 09/28/23 15:09 JF 000 09/28/23 15:10 09/28/23 15:09 Wound Care Center Nurse 3 #1 LT GREAT TOE -Ulcer Cleansing Rinsed/ Irrigated with Saline -Other Dressing betadine -Primary Dressing Covered/Secured with Dry Gauze, Secured with Tape Pain Scale: 0-10 Numeric Is Patient Pain Free? Yes - Visit Discharge Discharge Condition Stable Ambulatory Status Wheelchair Transportation Private Auto Accompanied by daughter and Medication Reconcilliation completed & Yes provided to patient/care provider Clinical Summary of Care Provided Yes Assessment/Plan Assessment/Plan (1) Critical limb ischemia of left lower extremity: CODE(S): I70.222 - Atherosclerosis of [place] arteries of extremities with rest pain, left leg PLAN: Patient was examined and evaluated. All findings were discussed with the patient. All questions were answered to the patient's satisfaction. Educated the patient's and daughter that they we will need to apply Betadine paint to the areas of precallused lesions on the left foot. They are to inspect his webspaces 1 through 4 bilateral. Also educated the patient to apply Betadine paint to webspaces 1 through 4 on the left. They are to also purchase or see if their insurance will cover Prevalon and or PRAFO boots for continuous offloading pads. Educated the patient as well as the family to continue to reposition the patient every 2 hours to decrease likelihood of bedsores. They are all understanding this. Patient was giving business card to Dr. Quinteros with any questions or concerns. Follow-up at the wound care center with Dr. Quinteros as needed. (2) Pain in left foot: CODE(S): M79.672 - Pain in left foot
--- NOTE | 2023-10-13 09:21 | WC ---
PHOTO 09/28/23 LEFT HALLUX
--- NOTE | 2023-10-13 09:22 | WC ---
PHOTO 09/28/23 LEFT HALLUX
--- NOTE | 2023-10-13 09:26 | WC ---
PHOTO 09/28/23 LEFT GREAT TOE
== END 2023-10-22 23:59 | disposition home or self-care (01) ==
LOC: WC 12:56
PROVIDERS: PCP Internal Medicine; Referring Provider Internal Medicine; Visit Provider Podiatrist Foot & Ankle Surgery
DX: I70.222 Atherosclerosis of native arteries of extremities with rest pain, left leg (principal); D46.Z Other myelodysplastic syndromes; N18.6 End stage renal disease; I12.0 Hypertensive chronic kidney disease with stage 5 chronic kidney disease or end stage renal disease; R60.0 Localized edema; R53.1 Weakness; E78.00 Pure hypercholesterolemia, unspecified; E07.9 Disorder of thyroid, unspecified; Z99.2 Dependence on renal dialysis; Z79.82 Long term (current) use of aspirin; Z79.890 Hormone replacement therapy; Z79.891 Long term (current) use of opiate analgesic; Z79.899 Other long term (current) drug therapy; Z95.1 Presence of aortocoronary bypass graft
CPT/HCPCS: 99213; 99214; G0463